=== PATIENT | male | born 1965 | race Caucasian/White ===

== ENCOUNTER → 2020-08-12 | Outpatient (CLI) | payer BC ==
--- NOTE | 2020-08-14 15:14 | US ---
EXAMINATION TYPE: US venous doppler duplex LE RT DATE OF EXAM: 08/12/2020 8:48 AM COMPARISON: NONE CLINICAL HISTORY: M79.89 Rt leg swelling. Right foot redness after injury from work equipment one mon ago. Recently, patient bent down to retrieve dog bowl and felt tear/pressure change right upper po sterior calf and now feels palpable here SIDE PERFORMED: Right TECHNIQUE: The lower extremity deep venous system is examined utilizing real time linear array sonog kayley with graded compression, doppler sonography and color-flow sonography. VESSELS IMAGED: Common Femoral Vein Deep Femoral Vein Greater Saphenous Vein * Femoral Vein Popliteal Vein Small Saphenous Vein * Proximal Calf Veins (* superficial vessels) There is normal flow, compressibility, vascular waveforms. Right Leg: Negative for DVT. At patient's c/o right posterior calf palpable are 2 fluid collections: at most superior posterior calf a simple fluid collection is seen = 6.5 x 4.0x 1.6cm and just inferio r is fluid collection that is complex = 6.6 x 4.8 x 3.0cm. Tech findings called to Nurse Practitioner for Ken Rider MD, at exam's end. JJ IMPRESSION: No evident deep venous stenosis at or above the right knee. 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
== END | disposition home or self-care (01) ==
LOC: RADUSWWP 06:53
PROVIDERS: ATTEND Family Medicine
DX: I73.9 Peripheral vascular disease, unspecified (principal); M79.89 Other specified soft tissue disorders

== ENCOUNTER → 2021-03-08 | Outpatient (CLI) | payer BC ==
--- NOTE | 2021-03-11 10:05 | MR ---
EXAMINATION TYPE: MR lumbar spine wo/w con DATE OF EXAM: 03/08/2021 COMPARISON: Prior lumbar MRI 10/07/2019 from outside institution HISTORY: Low back pain, numbness into legs. Unsteady on feet. TECHNIQUE: Multiplanar, multisequence images of the lumbar spine were acquired utilizing 10 mL intravenous Gadav ist gadolinium contrast. T12-L1: There is right posterior paracentral disc protrusion, endplate disc complex causing slight an terolateral mass effect on the thecal sac. No significant foraminal encroachment or spinal stenosis. There is facet arthropathy change. L1-L2: Posterior extension endplate disc complex results in some anterior mass effect on the thecal s ac, circumferential extension endplate disc complex causes left greater than right foraminal encroach ment. Left posterior paracentral disc bulge causes anterolateral mass effect on the thecal sac simila r to prior exam L2-L3: Posterior extension endplate disc complex causes mild anterior mass effect on the thecal sac. Circumferential extension endplate disc complex causes foraminal encroachment greater on the left bessy n on the right. Only mild spinal stenosis. L3-L4: Circumferential posterior disc bulge, endplate disc complex causes anterior mass effect on the thecal sac, mild spinal stenosis. There is facet arthropathy change contributing to encroachment on the lateral recesses. Circumferential extension of endplate disc complex encroaches on the left neura l foramen greater than right likely contributed by the scoliosis. The large disc herniation seen on p rior exam is not seen, likely due to interval surgery L4-L5: Spinal stenosis changes are again noted. Circumferential extension endplate disc complex contr ibuted with the listhesis causes bilateral foraminal encroachment. There is facet arthropathy with hy pertrophy of the ligamentum flavum. There is moderate to severe spinal stenosis, posterior disc herni ation causes anterolateral mass effect on the thecal sac in the left posterior left posterior paracen tral location, some peripheral enhancement is noted following contrast administration. There is some encroachment on the lateral recesses. L5-S1: Similar circumferential posterior and lateral extension endplate disc complex is noted, contac ting the anterior thecal sac and possibly proximal S1 nerve roots, lateral extension causes bilateral foraminal encroachment as on prior. There is some associated facet arthropathy change. No significan t spinal stenosis. Lumbar segments are intact. No paraspinal masses are identified. Conus medullaris has a normal appe arance. There is a spinal curvature, convex right centered near the lumbar spine. There is multilevel spondylosis. Loss of disc height is present at intervertebral levels, there is associated vacuum phe nomenon at the intervertebral levels, there is endplate discogenic marrow signal change. Retrolisthes is grade 1 L5-S1, anterolisthesis grade 1 at L4-5 is again seen. Lumbar vertebral bodies show preserv ed height. No additional abnormal enhancement following contrast administration. IMPRESSION: Degenerative disc disease, multilevel foraminal encroachment, spinal stenosis, scoliosis, facet arthr opathy as described, findings are similar to prior exam with interval discectomy suspected L3-4
== END | disposition home or self-care (01) ==
LOC: RADMRIMAIN 16:03
PROVIDERS: ATTEND Psychiatry & Neurology Neurology
DX: M48.061 Spinal stenosis, lumbar region without neurogenic claudication (principal); M51.36 Other intervertebral disc degeneration, lumbar region; M12.88 Other specific arthropathies, not elsewhere classified, other specified site
CPT/HCPCS: 72158; A9585

== ENCOUNTER 2021-03-11 15:13 | Observation (INO) | payer BC ==
[2021-03-11] MEDS ORDERED: methylPREDNISolone SOD SUCCI 125 MG/2 ML VIAL IV STA (16:16)
[2021-03-11] MEDS ORDERED: FAMOTIDINE 20 MG/2 ML VIAL IV STA (16:17)
[2021-03-11] MEDS ORDERED: diphenhydrAMINE 50 MG/ML 1 ML VIAL IVP STA (16:17)
[2021-03-11 17:01] LABS: Basophils % (A) 0 %; Eosinophils # (A) 0.1 k/uL (0-0.7); Eosinophils % (A) 1 %; HCT 47.5 % (39.0-53.0); HGB 16.3 gm/dL (13.0-17.5); Lymphocytes # (A) 0.6 k/uL (1.0-4.8); Lymphocytes % (A) 5 %; MCH 31.4 pg (25.0-35.0); MCHC 34.3 g/dL (31.0-37.0); MCV 91.6 fL (80.0-100.0); Mean Platelet Volume 7.7; Monocytes # (A) 0.2 k/uL (0-1.0); Monocytes % (A) 2 %; Neutrophils # (A) 11.5 k/uL (1.3-7.7); Neutrophils % (A) 92 %; Platelet Count 278 k/uL (150-450); RBC 5.18 m/uL (4.30-5.90); RDW 12.5 % (11.5-15.5); WBC 12.6 k/uL (3.8-10.6)
[2021-03-11 17:10] LABS: ALT 57 U/L (4-49); AST 33 U/L (17-59); African American GFR (CKD) >90 (>60 ml/min/1.73 sqM); Albumin 4.6 g/dL (3.5-5.0); Alkaline Phosphatase 83 U/L (38-126); Anion Gap 11 mmol/L; Blood Urea Nitrogen 20 mg/dL (9-20); Calcium 9.8 mg/dL (8.4-10.2); Carbon Dioxide 27 mmol/L (22-30); Chloride 97 mmol/L (98-107); Glucose 132 mg/dL (74-99); Magnesium 1.9 mg/dL (1.6-2.3); Non-African American GFR(CKD) >90 (>60 ml/min/1.73 sqM); Potassium 4.2 mmol/L (3.5-5.1); Sodium 135 mmol/L (137-145); Total Bilirubin 0.4 mg/dL (0.2-1.3); Total Protein 7.8 g/dL (6.3-8.2)
--- NOTE | 2021-03-11 17:50 | XR ---
EXAMINATION TYPE: XR chest 1V portable DATE OF EXAM: 03/11/2021 COMPARISON: NONE HISTORY: Neck swelling TECHNIQUE: Single view FINDINGS: There is no heart failure nor confluent pneumonic infiltrate. Costophrenic angles are clear . There are chest leads. IMPRESSION: No active cardiopulmonary disease.
--- NOTE | 2021-03-11 18:40 | CT ---
EXAMINATION TYPE: CT soft tissue neck w con DATE OF EXAM: 03/11/2021 COMPARISON: None HISTORY: Neck swelling post covid vaccine. CT DLP: 390.1 mGycm Automated exposure control for dose reduction was used. CONTRAST: Performed with IV Contrast, patient injected with 100ml mL of Isovue 300. Images obtained from the aortic arch to the orbits with IV contrast. The lung apices are clear. There is no mediastinal adenopathy. There is normal branching pattern of t he great vessels on the aortic arch. Thyroid gland is symmetric. There is normal contrast opacificati on of the carotid arteries and jugular veins. The submandibular salivary glands are symmetric. Paroti d glands are symmetric. There is enlarged right side submandibular lymph node that measures 3 cm. There is 1 cm left side sub mandibular lymph node. The mandible is intact. There are spondylotic changes in the lower cervical spine. Epiglottis is norm al. Trachea appears normal. There is no evidence of a pharyngeal mass. The tongue appears normal. The tonsils and adenoids are within normal limits. There is normal aeration of the maxillary sinuses. IMPRESSION: Moderately enlarged right side submandibular lymph node. No other significant abnormality.
[2021-03-11] MEDS ORDERED: CLINDAMYCIN 600 MG in DEXTROSE 5% IN WATER 50 ML IVPB STA ×2 (19:42)
[2021-03-11] MEDS ORDERED: traMADol 50 MG TAB PO PRN (22:49)
--- NOTE | 2021-03-11 23:02 | ED ---
General Adult HPI - General Chief complaint: Recheck/Abnormal Lab/Rx Stated complaint: vaccine reaction, facial swelling Time Seen by Provider: 03/11/21 15:30 Source: patient, family, RN notes reviewed, old records reviewed Mode of arrival: wheelchair Limitations: physical limitation - History of Present Illness Initial comments: Patient is a 55-year-old male with past medical history remarkable for hyperlipidemia, arthritis, chronic back pain who presents emergency department after being sent by his PCP for IV steroids and evaluation of his lymphedema. Patient states that last week he received a COVID-19 vaccine, and last week shortly after she experienced neck swelling and lymph nodes. He was in an outside hospital, and given IV steroids, and eventually discharged home on a steroid Dosepak. He states that the swelling improved, however today he notes that the right side of his neck was more swollen again. He became concerned and came to the emergency department for evaluation after speaking with his doctor. He denies any fevers, chills, chest pain, shortness of breath, abdominal pain, nausea, vomiting. He does endorse discomfort when swallowing, however is still able to eat and drink. He denies any difficulty breathing or feeling of his throat closing up. He presents for evaluation of his lymphedema. He states this has not occurred previously. - Related Data Home Medications Medication Instructions Recorded Confirmed Pregabalin [Lyrica] 75 mg PO BID 03/11/21 03/11/21 hydroCHLOROthiazide 50 mg PO BID 03/11/21 03/11/21 methylPREDNISolone Dose Pack See Taper PO DIRECTED 03/11/21 03/11/21 [Medrol Dose Pack] traMADol HCl [Ultram] 50 mg PO TID PRN 03/11/21 03/11/21 Allergies Allergy/AdvReac Type Severity Reaction Status Date / Time amoxicillin Allergy Rash/Hives Verified 03/11/21 17:46 latex AdvReac Rash/Hives Verified 03/11/21 17:46 Review of Systems ROS Statement: Those systems with pertinent positive or pertinent negative responses have been documented in the HPI. Review of Systems: CONST: Denies fever EYES: Denies blurry vision ENT: Endorses neck swelling C/V: Denies Chest pain RESP: Denies shortness of breath GI: Denies abdominal pain : Denies dysuria SKIN: Denies rash. MSK: Denies joint pain. NEURO: Denies headache ROS Other: All systems not noted in ROS Statement are negative. Past Medical History Past Medical History: Hyperlipidemia, Osteoarthritis (OA) Additional Past Medical History / Comment(s): ECHO SCHEDULED SUNDAY FOR EVAL. BACK PAIN, meinger's disease History of Any Multi-Drug Resistant Organisms: None Reported Past Surgical History: Back Surgery Additional Past Surgical History / Comment(s): L1-L2 RUPTURE HX 2003, Past Anesthesia/Blood Transfusion Reactions: No Reported Reaction Past Psychological History: No Psychological Hx Reported Smoking Status: Never smoker Past Alcohol Use History: None Reported Past Drug Use History: None Reported - Past Family History Father History Unknown: Yes Additional Family Medical History / Comment(s): cataract; glaucoma Mother History Unknown: Yes Family Medical History: No Reported History General Exam - General Exam Comments Initial Comments: General: Appears in no acute distress. HEAD: Normal with no signs of head trauma. EYES: PERRLA, EOMI, conjunctiva normal, no discharge. ENT: Patient has an approximately 3 cm palpable lymph node over the right submandibular region. There is a small palpable lymph node in the left submandibular region. Posterior oropharynx shows no uvular deviation or swelling. No stridor is auscultated on exam. Patient is tolerating his secretions well. RESPIRATORY: Clear breath sounds bilaterally. No wheezes, rales, or rhonchi. C/V: Regular rate and rhythm. S1 and S2 auscultated, no edema, peripheral pulses 2+ and intact throughout ABD: Abd is soft, nontender, nondistended EXT: Normal range of motion, no obvious deformity SKIN: No rashes or lesions observed on exposed skin. NEURO: Alert and oriented 4. Cranial nerves II through XII are intact. No focal deficits. Limitations: physical limitation Course Vital Signs 03/11/21 03/11/21 03/11/21 15:38 18:57 20:36 Temperature 98.4 F 98.0 F Pulse Rate 64 60 87 Pulse Rate [ Pulse Oximetery ] Respiratory 18 16 16 Rate Blood Pressure 141/87 129/76 128/76 Blood Pressure [Right Arm] O2 Sat by Pulse 96 95 99 Oximetry 03/11/21 21:09 Temperature 98.5 F Pulse Rate Pulse Rate [ 57 L Pulse Oximetery ] Respiratory 20 Rate Blood Pressure Blood Pressure 143/82 [Right Arm] O2 Sat by Pulse 94 L Oximetry Medical Decision Making - Medical Decision Making Based on the patient's presentation and physical exam, I do believe he is having what appears to be recurrence of his lymphedema. It has been ongoing since this morning but seems to stabilize per patient. His only complaint otherwise is mild discomfort when he swallows. He is tolerating by mouth intake and has no stridor or difficulty breathing. However we will obtain basic laboratory studies as well as a CT soft tissue of the neck. He is currently not in any pain. We will administered 125 mg of IV Solu-Medrol, 50 mg's of IV Benadryl, 40 mg of IV famotidine. Patient mentioned that he may have a heart condition or m urmur in there for screening EKG will also be obtained. He was in agreement with this plan. Patient's EKG showed sinus bradycardia with an incomplete right bundle branch block but no acute ischemic changes. Patient's laboratory studies are remarkable for a mild leukocytosis of 12.6. Patient is a mildly elevated ELT of 57. Remainder of his labs are unremarkable. CT soft tissue of the neck rev ealed a 3 cm enlarged lymph node in the right submandibular space and a 1 cm enlarged lymph node in the left submandibular space. There are no other significant abnormalities. On reevaluation, patient remains stable. I did discuss with him the results of his laboratory studies and imaging recommended that I speak with ENT over the phone. He was in agreement with this plan. I spoke with ENT over the phone and they recommended that patient receive IV antibiotics. Due to the patient's acute onset of swelling, I do believe that monitoring him for worsening of the swelling overnight is appropriate. ENT was in agreement with this plan. Patient was in agreement with this plan. Patient has an ampicillin ALLERGY and will therefore be started on IV clindamycin every 6hr 600 mg. Will also receive every 6 hour Solu-Medrol. ENT recommended outpatient antibiotic and follow-up with their clinic. They state they do not need to evaluate the patient in the hospital. I spoke with the admitting physician, Dr. Clayton, who was in agreement this plan. Patient was therefore admitted in fair condition. - Lab Data Result diagrams: 03/11/21 16:46 03/11/21 16:46 Lab Results 03/11/21 03/11/21 Range/Units 16:46 16:46 WBC 12.6 H (3.8-10.6) k/uL RBC 5.18 (4.30-5.90) m/uL Hgb 16.3 (13.0-17.5) gm/dL Hct 47.5 (39.0-53.0) % MCV 91.6 (80.0-100.0) fL MCH 31.4 (25.0-35.0) pg MCHC 34.3 (31.0-37.0) g/dL RDW 12.5 (11.5-15.5) % Plt Count 278 (150-450) k/uL MPV 7.7 Neutrophils % 92 % Lymphocytes % 5 % Monocytes % 2 % Eosinophils % 1 % Basophils % 0 % Neutrophils # 11.5 H (1.3-7.7) k/uL Lymphocytes # 0.6 L (1.0-4.8) k/uL Monocytes # 0.2 (0-1.0) k/uL Eosinophils # 0.1 (0-0.7) k/uL Basophils # 0.0 (0-0.2) k/uL Sodium 135 L (137-145) mmol/L Potassium 4.2 (3.5-5.1) mmol/L Chloride 97 L (98-107) mmol/L Carbon Dioxide 27 (22-30) mmol/L Anion Gap 11 mmol/L BUN 20 (9-20) mg/dL Creatinine 0.57 L (0.66-1.25) mg/dL Est GFR (CKD-EPI)AfAm >90 (>60 ml/min/1.73 sqM) Est GFR (CKD-EPI)NonAf >90 (>60 ml/min/1.73 sqM) Glucose 132 H (74-99) mg/dL Calcium 9.8 (8.4-10.2) mg/dL Magnesium 1.9 (1.6-2.3) mg/dL Total Bilirubin 0.4 (0.2-1.3) mg/dL AST 33 (17-59) U/L ALT 57 H (4-49) U/L Alkaline Phosphatase 83 (38-126) U/L Total Protein 7.8 (6.3-8.2) g/dL Albumin 4.6 (3.5-5.0) g/dL - EKG Data -: EKG Interpreted by Me EKG Comments: 12-lead Electrocardiogram Interpretation Note EKG was reviewed and interpreted by myself. 12-lead ECG performed at 1642 is interpreted by me as revealing sinus bradycardia with incomplete right branch b lock at a rate of 58 beats per minute. [place] is normal. MN interval is 150 ms, QRS durations 114 ms, QTc is 422 ms.. There were no ST or T wave abnormalities to suggest myocardial ischemia or injury. R wave progression across the precordium was satisfactory. By my interpretation this EKG is non-diagnostic for acute ischemia. Disposition Clinical Impression: Lymphadenopathy, Leukocytosis, Vaccine reaction Disposition: ADMITTED IP TO THIS HOSP Condition: Fair
[2021-03-11] MEDS: methylPREDNISolone SOD SUCCI 125 MG/2 ML VIAL IV SCH (23:07)
[2021-03-11] MEDS: PREGABALIN 75 MG CAP PO SCH (23:09)
[2021-03-12] MEDS: CLINDAMYCIN 600 MG in DEXTROSE 5% IN WATER 50 ML IVPB SCH ×4 (02:45→08:20)
[2021-03-12] MEDS: methylPREDNISolone SOD SUCCI 125 MG/2 ML VIAL IV SCH ×2 (06:21→11:32)
[2021-03-12] MEDS: PREGABALIN 75 MG CAP PO SCH ×2 (08:18→21:18)
--- NOTE | 2021-03-12 13:44 | P.HPIM ---
History of Present Illness H&P Date: 03/12/21 Chief Complaint: Right neck swelling History of presenting complaint: This is a pleasant 55-year-old patient of Dr. Rider. Chronic stable medical conditions include hyperlipidemia, osteoarthritis, Mnire's disease. Patient had COVID 19 infection in November of this year. Pain does ago patient received his first dose of more done on vaccination. On Sunday. Right neck started swelling. There was no pain. No fever no chills or trouble swallowing no wheezing. On Sunday when Dr. Tolbert [facility] May he did have a computed tomography scan to the blood work was all negative. From that he was sent down to [facility]. He was put on IV dexamethasone. Next morning he was seen by ENT. He did have a scope via the nose and was told it was all normal. He was sent home on steroids. He subsequently did follow up with [facility]. He was then told to come in to the ER here as yesterday started having some trouble swallowing. Swelling started coming back. No fever no chills. No wheezing. In the ER he was started on IV Solu-Medrol. This morning he was able to eat actually. No fever no chills. No pain. Denies any other systemic symptoms. Patient is also had previous lumbar surgery and is having flareup of his symptoms both in the neck and lumbar spine. He does follow with Dr. Aj from orthopedic [facility] and has had previous steroid injections. He also follows with neurology services Dr. Hayden in [facility]. He has noticed some numbness tingling in the right leg. And has taken time off from his work last week. Review of systems: GEN.: None EYES: None HEENT: As above NECK: None RESPIRATORY: None CARDIOVASCULAR: None GASTROINTESTINAL: None GENITOURINARY: None MUSCULOSKELETAL: [Low-back discomfort and some right leg numbness. The patient is able to walk. No change in bowel or urine symptoms LYMPHATICS: None HEMATOLOGICAL: None PSYCHIATRY: None NEUROLOGICAL: None Past medical history to include: Hyperlipidemia, osteoarthritis, COVID 19 infection, Mnire's disease, low back pain with L1-L2 surgery Social history: . No smoking. No alcohol. Employed. No recreational drugs Family history: Reviewed, noncontributory to presentation Physical examination: VITAL SIGNS: 97.7, 59, 20, 1 34 x 80, 94% on room air GENERAL: BMI 30.7, declining in bed, awake. EYES: Pupils equal. Conjunctiva normal. HEENT: External appearance of nose and ears normal, oral cavity grossly normal. NECK: [JVD not raised; right submandibular swelling smooth. Nontender. Nontender from the floor of the mouth.. HEART: First and second heart sounds are normal; no edema. LUNGS: Respiratory rate normal; clear to auscultation. ABDOMEN: Soft, nontender, liver spleen not palpable, no masses palpable. PSYCH: Alert and oriented x3; mood and affect normal. NEUROLOGICAL: Cranial nerves grossly intact; no facial asymmetry, power and sensation grossly intact. LYMPHATICS: No other lymph nodes palpable. None in the supraclavicular, axillary INVESTIGATIONS, reviewed in the clinical context: WBC 12.6 hemoglobin 16.3 platelets 278 neutrophils 11.5 lymphocytes 0.6 Sodium 135 potassium 4.2 creatinine 0.57 EKG tracing personally reviewed by me-normal sinus rhythm. Incomplete right bundle-branch block Computed tomography scan soft tissue neck with contrast: Enlarged right-sided submandibular lymph node about 3 cm. Assessment and plan: -Recurrent progressive, isolated right submandibular lymph node 3 cm. It does seem to respond to steroids and then recurrs. This did happen 5 days after getting his more done on vaccination short for COVID 19. What is interesting in that no other lymph nodes seem to be involved. Hence my concern that is another etiology. Patient does not have any systemic symptoms like fever or chills. He has no teeth or mouth symptoms. Patient did have dysphagia, which is better from steroids. Does not appear to be a bacterial infection and still DC antibiotics when washed the patient for 24 hours. Have the patient follow-up with ENT. -Acute on chronic low back pain and the patient was previously had L1-L2 surgery. MRI done yesterday shows DJD, multiple level for spinal stenosis: Patient will benefit from steroids. We'll also give a course of naproxen. GI prophylaxis. [facility] was discussed with the patient. IV Solu-Medrol. NSAIDs. Consult o rthopedics. Increase activity as tolerated. Lovenox for DVT prophylaxis. Follow-up with ENT Dr. Price outpatient. Patient will be observed overnight. Past Medical History Past Medical History: Hyperlipidemia, Osteoarthritis (OA) Additional Past Medical History / Comment(s): ECHO SCHEDULED SUNDAY FOR EVAL. BACK PAIN, meinger's disease History of Any Multi-Drug Resistant Organisms: None Reported Past Surgical History: Back Surgery Additional Past Surgical History / Comment(s): L1-L2 RUPTURE HX 2003, Past Anesthesia/Blood Transfusion Reactions: No Reported Reaction Past Psychological History: No Psychological Hx Reported Smoking Status: Never smoker Past Alcohol Use History: None Reported Past Drug Use History: None Reported - Past Family History Father History Unknown: Yes Additional Family Medical History / Comment(s): cataract; glaucoma Mother History Unknown: Yes Family Medical History: No Reported History Medications and Allergies Home Medications Medication Instructions Recorded Confirmed Type Pregabalin [Lyrica] 75 mg PO BID 03/11/21 03/11/21 History hydroCHLOROthiazide 50 mg PO BID 03/11/21 03/11/21 History methylPREDNISolone Dose Pack See Taper PO DIRECTED 03/11/21 03/11/21 History [Medrol Dose Pack] traMADol HCl [Ultram] 50 mg PO TID PRN 03/11/21 03/11/21 History Allergies Allergy/AdvReac Type Severity Reaction Status Date / Time amoxicillin Allergy Rash/Hives Verified 03/11/21 17:46 latex AdvReac Rash/Hives Verified 03/11/21 17:46 Physical Exam Vitals: Vital Signs Temp Pulse Pulse Resp BP BP BP 03/12/21 04:45 97.7 F 59 L 20 134/80 03/11/21 21:09 98.5 F 57 L 20 143/82 03/11/21 20:36 98.0 F 87 16 128/76 03/11/21 18:57 60 16 129/76 03/11/21 15:38 98.4 F 64 18 141/87 Pulse Ox 03/12/21 04:45 94 L 03/11/21 21:09 94 L 03/11/21 20:36 99 03/11/21 18:57 95 03/11/21 15:38 96 Intake and Output 03/11/21 03/12/21 03/12/21 22:59 06:59 14:59 Intake Total 0 Balance 0 Intake: Oral 0 Other: Voiding Method Toilet Urinal # Voids 1 Weight 97 kg Results CBC & Chem 7: 03/11/21 16:46 03/11/21 16:46 Labs: Abnormal Lab Results - Last 24 Hours (Table) 03/11/21 03/11/21 Range/Units 16:46 16:46 WBC 12.6 H (3.8-10.6) k/uL Neutrophils # 11.5 H (1.3-7.7) k/uL Lymphocytes # 0.6 L (1.0-4.8) k/uL Sodium 135 L (137-145) mmol/L Chloride 97 L (98-107) mmol/L Creatinine 0.57 L (0.66-1.25) mg/dL Glucose 132 H (74-99) mg/dL ALT 57 H (4-49) U/L Thrombosis Risk Factor Assmnt - Choose All That Apply Any of the Below Risk Factors Present?: Yes Each Factor Represents 1 point: Age 41-60 years, Obesity (BMI >25) Other Risk Factors: No Other congenital or acquired thrombophilia - If yes, enter type in comment: No Thrombosis Risk Factor Assessment Total Risk Factor Score: 2 Thrombosis Risk Factor Assessment Level: Low Risk
[2021-03-12] MEDS: NAPROXEN 250 MG TAB PO SCH ×2 (14:03→21:19)
[2021-03-12] MEDS: ENOXAPARIN 40 MG/0.4 ML SYRINGE SQ SCH (14:03)
[2021-03-12] MEDS: FAMOTIDINE 20 MG TAB PO SCH ×2 (14:04→21:18)
[2021-03-12] MEDS: methylPREDNISolone SOD SUCCI 40 MG/ML 1 ML VIAL IV SCH (21:18)
[2021-03-13] MEDS: ENOXAPARIN 40 MG/0.4 ML SYRINGE SQ SCH (07:59)
[2021-03-13] MEDS: PREGABALIN 75 MG CAP PO SCH (07:59)
[2021-03-13] MEDS: FAMOTIDINE 20 MG TAB PO SCH (07:59)
[2021-03-13] MEDS: NAPROXEN 250 MG TAB PO SCH ×2 (07:59→15:08)
[2021-03-13] MEDS: methylPREDNISolone SOD SUCCI 40 MG/ML 1 ML VIAL IV SCH (08:00)
--- NOTE | 2021-03-13 10:50 | P.CNOR ---
History of Present Illness - [facility] Consult date: 03/13/21 Consult reason: low back pain History of present illness: The patient is a 55-year-old male who presented to the emergency department with an enlarged lymph node in the right side of his neck. The patient was having difficulty breathing. The patient was placed on IV steroids and admitted for further observation. The patient was previously on oral steroids and was starting to taper off and noticed his swelling worsened. The patient has a history of chronic low back pain with a surgery in 2003. The patient has seen Dr. Morgan in the past and was recommended to get epidural injections with Dr. Frias. He had [address] Frias before the pandemic started in 2019. He was recently seen by his primary care physician and they sent a referral to [facility] for further evaluation of his lumbar spine. The patient states he does not know why the referral was sent there and not to our office. He was ordered an MRI outpatient that was completed on 03/11/2021. He states that [facility] wanted to compare his MRI to his previous MRI done at [facility]. He is awaiting further appointments at that office to schedule epidural injections. The patient states that his bilateral feet have been numb for approximately 4 weeks and the numbness in his right leg has continued to worsen as well. He is currently off of work due to weakness in his right leg especially. Orthopedics was consulted for further evaluation and care. The patient states that his neck pain has improved since IV steroids have been started but his low back is about the same. Review of Systems Constitutional: Denies chills, Denies fever Ears, nose, mouth and throat: Reports swelling in throat Cardiovascular: Denies chest pain, Denies shortness of breath Respiratory: Denies cough Gastrointestinal: Denies diarrhea, Denies nausea, Denies vomiting Musculoskeletal: Reports leg numbness/tingling, Reports low back pain Past Medical History Past Medical History: Hyperlipidemia, Osteoarthritis (OA) Additional Past Medical History / Comment(s): ECHO SCHEDULED SUNDAY FOR EVAL. BACK PAIN, meinger's disease History of Any Multi-Drug Resistant Organisms: None Reported Past Surgical History: Back Surgery Additional Past Surgical History / Comment(s): L1-L2 RUPTURE HX 2003, Past Anesthesia/Blood Transfusion Reactions: No Reported Reaction Past Psychological History: No Psychological Hx Reported Smoking Status: Never smoker Past Alcohol Use History: None Reported Past Drug Use History: None Reported - Past Family History Father History Unknown: Yes Additional Family Medical History / Comment(s): cataract; glaucoma Mother History Unknown: Yes Family Medical History: No Reported History Medications and Allergies Home Medications Medication Instructions Recorded Confirmed Type Pregabalin [Lyrica] 75 mg PO BID 03/11/21 03/11/21 History hydroCHLOROthiazide 50 mg PO BID 03/11/21 03/11/21 History methylPREDNISolone Dose Pack See Taper PO DIRECTED 03/11/21 03/11/21 History [Medrol Dose Pack] traMADol HCl [Ultram] 50 mg PO TID PRN 03/11/21 03/11/21 History Allergies Allergy/AdvReac Type Severity Reaction Status Date / Time amoxicillin Allergy Rash/Hives Verified 03/11/21 17:46 latex AdvReac Rash/Hives Verified 03/11/21 17:46 Physical Examination The patient is a 55 year-old male who is in no acute distress. He is alert and oriented 3. Abdomen is soft and nontender. Chest has good excursion with deep inspiration. There is mild paraspinal spasm on palpation to the lumbar spine bilaterally. He is able to sit on the side of bed without difficulty. He has sustained dorsiflexion and plantar flexion and EHL function 5/5 on the left side. There is weakness to the right side 3/5 EHL function, dorsiflexion, and plantar flexion. Bilateral calves are soft and nontender. Neurological and circulatory status is intact. Results - Labs Labs: H & H 03/11/21 Range/Units 16:46 Hgb 16.3 (13.0-17.5) gm/dL Hct 47.5 (39.0-53.0) % Result Diagrams: 03/11/21 16:46 03/11/21 16:46 - Diagnostic results Lumbar MRI with/without contrast: image reviewed (See report. No acute changes.) Assessment and Plan (1) Degenerative disc disease, lumbar Current Visit: Yes Status: Acute Code(s): M51.36 - OTHER INTERVERTEBRAL DISC DEGENERATION, LUMBAR REGION SNOMED Code(s): 71460650 (2) Lymphadenopathy Current Visit: Yes Status: Acute Code(s): R59.1 - GENERALIZED ENLARGED LYMPH NODES SNOMED Code(s): 03675308 Plan: The clinical and MRI findings were discussed with the patient. The case was discussed with Dr. Morgan. No surgical intervention is planned at this time. The patient may ambulate as tolerated. Continue pain control as needed. The patient states that he may be discharged today on oral steroids. He may follow up with Dr. Morgan in the office for further evaluation regarding options in regards to his lumbar spine.
[2021-03-13 14:25] VITALS: BP 160/85; PULSE 69; RESP 16; TEMP 98.1
--- NOTE | 2021-03-13 14:35 | P.DS ---
Providers Date of admission: 03/11/21 20:08 Expected date of discharge: 03/13/21 Attending physician: Jordan Clayton Consults: 03/12/21 11:54 Consult Physician Routine Consulting Provider: Heron Morgan Consult Reason/Comments: back pain/prior surgery Do you want consulting provider notified?: Yes Primary care physician: [facility] Course: Chief Complaint: Right neck swelling History of presenting complaint: This is a pleasant 55-year-old patient of Dr. Rider. Chronic stable medical conditions include hyperlipidemia, osteoarthritis, Mnire's disease. Patient had COVID 19 infection in November of this year. Pain does ago patient received his first dose of more done on vaccination. On Sunday. Right neck started swelling. There was no pain. No fever no chills or trouble swallowing no wheezing. On Sunday when Dr. Tolbert [facility] May he did have a computed tomography scan to the blood work was all negative. From that he was sent down to [facility]. He was put on IV dexamethasone. Next morning he was seen by ENT. He did have a scope via the nose and was told it was all normal. He was sent home on steroids. He subsequently did follow up with [facility]. He was then told to come in to the ER here as yesterday started having some trouble swallowing. Swelling started coming back. No fever no chills. No wheezing. In the ER he was started on IV Solu-Medrol. This morning he was able to eat actually. No fever no chills. No pain. Denies any other systemic symptoms. Patient is also had previous lumbar surgery and is having flareup of his symptoms both in the neck and lumbar spine. He does follow with Dr. Aj [facility] and has had previous steroid injections. He also follows with neurology services Dr. Hayden in [facility]. He has noticed some numbness tingling in the right leg. And has taken time off from his work last week. Patient is put on high-dose steroids. March 13: Patient is seen by orthopedics Dr. Edward's team. They'll follow up as an outpatient. Patient's left foot is gone down. No fever no pain. Tolerating diet well. Patient will follow-up with ENT Dr. Dayo Price. Care was discussed. Questions answered. Tapering dose of steroids. Consultation: , from [facility] Past medical history to include: Hyperlipidemia, osteoarthritis, COVID 19 infection, Mnire's disease, low back pain with L1-L2 surgery Social history: . No smoking. No alcohol. Employed. No recreational drugs Family history: Reviewed, noncontributory to presentation Physical examination: VITAL : 98.1, 69, 16, 160/85, 95% room air GENERALReclining in bed, comfortableES: Pupils equal. Conjunctiva normal. HEENT: External appearance of nose and ears normal, oral cavity grossly normal. NECK: [JVD not raised; right submandibular swelling smooth-Reduced in size. Nontender. Nontender from the floor of the mouth.. HEART: First and second heart sounds are normal; no edema. LUNGS: Respiratory rate normal; clear to auscultation. ABDOMEN: Soft, nontender, liver spleen not palpable, no masses palpable. PSYCH: Alert and oriented x3; mood and affect normal. NEUROLOGICAL: Cranial nerves grossly intact; no facial asymmetry, power and sensation grossly intact. LYMPHATICS: No other lymph nodes palpable. None in the supraclavicular, axillary INVESTIGATIONS, reviewed in the clinical context: WBC 12.6 hemoglobin 16.3 platelets 278 neutrophils 11.5 lymphocytes 0.6 Sodium 135 potassium 4.2 creatinine 0.57 EKG tracing personally reviewed by me-normal sinus rhythm. Incomplete right bundle-branch block Computed tomography scan soft tissue neck with contrast: Enlarged right-sided submandibular lymph node about 3 cm. Assessment and plan: -Recurrent progressive, isolated right submandibular lymph node 3 cm. It does seem to respond to steroids and then recurrs. This did happen 5 days after getting his more done on vaccination short for COVID 19. What is interesting in that no other lymph nodes seem to be involved. Hence my concern that is another etiology. Patient does not have any systemic symptoms like fever or chills. He has no teeth or mouth symptoms.: Reactive large lymphadenopathy Patient is wondering well to steroids. Discharged on tapering dose of steroids. Follow-up with ENT. -Acute dysphagia from lymphadenopathy: Improved -Acute on chronic low back pain and the patient was previously had L1-L2 surgery. MRI done yesterday shows DJD, multiple level for spinal stenosis: Discharge on tapering dose of steroids, naproxen. [facility] in the office. Disposition: Home Patient Condition at Discharge: Fair Plan - Discharge Summary Discharge Rx Participant: No New Discharge Prescriptions: New Famotidine [Pepcid] 20 mg PO BID #30 tab predniSONE 10 mg PO DAILY #30 tab Naproxen [Naprosyn] 250 mg PO TID #15 tab Continue traMADol HCl [Ultram] 50 mg PO TID PRN PRN Reason: Pain hydroCHLOROthiazide 50 mg PO BID Pregabalin [Lyrica] 75 mg PO BID Discontinued methylPREDNISolone Dose Pack [Medrol Dose Pack] See Taper PO DIRECTED Discharge Medication List Pregabalin [Lyrica] 75 mg PO BID 03/11/21 [History] hydroCHLOROthiazide 50 mg PO BID 03/11/21 [History] traMADol HCl [Ultram] 50 mg PO TID PRN 03/11/21 [History] Famotidine [Pepcid] 20 mg PO BID #30 tab 03/13/21 [Rx] Naproxen [Naprosyn] 250 mg PO TID #15 tab 03/13/21 [Rx] predniSONE 10 mg PO DAILY #30 tab 03/13/21 [Rx] Follow up Appointment(s)/Referral(s): Heron Morgan DO [Doctor of Osteopathic Medicine] - 1 Week Ken Rider MD [Primary Care Provider] - 1 Week Dayo Price MD [STAFF PHYSICIAN] - 1 Week
== END 2021-03-13 16:31 | disposition home or self-care (01) ==
LOC: EC 15:13 → 5NMEDONC 20:08
PROVIDERS: ADMIT Hospitalist; ATTEND Hospitalist
DX: T88.1XXA Other complications following immunization, not elsewhere classified, initial encounter (principal); I89.0 Lymphedema, not elsewhere classified; G89.29 Other chronic pain; M54.5 Low back pain; M19.90 Unspecified osteoarthritis, unspecified site; M51.36 Other intervertebral disc degeneration, lumbar region; M48.00 Spinal stenosis, site unspecified; E78.5 Hyperlipidemia, unspecified; R00.1 Bradycardia, unspecified; R20.2 Paresthesia of skin; R20.0 Anesthesia of skin; R53.1 Weakness; I45.10 Unspecified right bundle-branch block; H81.09 Meniere's disease, unspecified ear; Z79.899 Other long term (current) drug therapy; Z88.0 Allergy status to penicillin; Z91.040 Latex allergy status; Z86.16 Personal history of COVID-19; Z83.511 Family history of glaucoma; Z83.518 Family history of other specified eye disorder
CPT/HCPCS: 99285; 96376 ×3; 96365; 96366; 96372 ×2; 96375; 36415; 93005; 80053; 83735; 85025; 71045; 70491; G0378 ×3; J1200; J2920 ×2; J2930 ×2; J1650 ×2; Q9967

== ENCOUNTER → 2021-03-16 | Outpatient (CLI) | payer BC ==
--- NOTE | 2021-03-17 05:45 | MR ---
EXAMINATION TYPE: MR cervical spine wo con DATE OF EXAM: 03/16/2021 COMPARISON: None HISTORY: Numbness in left arm and tingling of finger tips right hand for 3 months. Multiplanar multiecho imaging of the cervical spine without contrast. There is minimal straightening of the mid cervical spine. There is degenerative disc space narrowing at C5-6 and C6-7. Cervical spinal cord shows no edema. There is small posterior disc bulging and gina iation from C4 to C7. The canal measures 8.5 mm at C6-7 which is the narrowest point. There is no spi nal stenosis. The brainstem is intact. I see no focal bone destruction. There is a sharply marginated rounded 7 mm cyst in the C6 vertebral body consistent with a degenerative cyst. There is no cervical paraspinal mass. Posterior elements are intact. IMPRESSION: Multilevel spondylotic changes with small posterior disc bulging and herniation as above. No evidence of any significant spinal stenosis.
== END | disposition home or self-care (01) ==
LOC: RADMRIMAIN 18:07
PROVIDERS: ATTEND Psychiatry & Neurology Neurology
DX: M50.322 Other cervical disc degeneration at C5-C6 level (principal); M47.812 Spondylosis without myelopathy or radiculopathy, cervical region
CPT/HCPCS: 72141

== ENCOUNTER 2021-04-08 17:41 | Emergency (ER) | payer BC ==
[2021-04-08 18:07] VITALS: RESP 20; TEMP 98.6
--- NOTE | 2021-04-08 18:47 | ED ---
General Adult HPI - General Chief complaint: Extremity Problem,Nontraumatic Stated complaint: Right leg swelling Time Seen by Provider: 04/08/21 18:32 Source: patient, family, RN notes reviewed Mode of arrival: ambulatory Limitations: no limitations - History of Present Illness Initial comments: Patient is a pleasant 56-year-old male presenting to the emergency department with concerns of right leg swelling. Symptoms started a couple of weeks ago. Symptoms worsened the last 5 days or so. Patient only has minimal discomfort secondary to the skin and feeling tight. Patient denies any chest pain or shortness of breath. Patient did have epidural injection secondary to back problems around 1 week ago. Swelling did start prior to this. No new leg weakness. No fevers. No color change. - Related Data Home Medications Medication Instructions Recorded Confirmed Pregabalin [Lyrica] 75 mg PO BID 03/11/21 03/11/21 hydroCHLOROthiazide 50 mg PO BID 03/11/21 03/11/21 traMADol HCl [Ultram] 50 mg PO TID PRN 03/11/21 03/11/21 Previous Rx's Medication Instructions Recorded Famotidine [Pepcid] 20 mg PO BID #30 tab 03/13/21 Naproxen [Naprosyn] 250 mg PO TID #15 tab 03/13/21 predniSONE 10 mg PO DAILY #30 tab 03/13/21 Allergies Allergy/AdvReac Type Severity Reaction Status Date / Time amoxicillin Allergy Rash/Hives Verified 03/11/21 17:46 COVID-19 vaccine, mRNA, Allergy Swelling Verified 04/08/21 18:08 [id number], L latex AdvReac Rash/Hives Verified 03/11/21 17:46 Review of Systems ROS Statement: Those systems with pertinent positive or pertinent negative responses have been documented in the HPI. ROS Other: All systems not noted in ROS Statement are negative. Constitutional: Denies: fever Eyes: Denies: eye pain ENT: Denies: ear pain Respiratory: Denies: cough Cardiovascular: Denies: chest pain Endocrine: Denies: fatigue Gastrointestinal: Denies: abdominal pain Genitourinary: Denies: dysuria Musculoskeletal: Denies: back pain Skin: Denies: rash Neurological: Denies: weakness Past Medical History Past Medical History: Hyperlipidemia, Osteoarthritis (OA) Additional Past Medical History / Comment(s): ECHO SCHEDULED SUNDAY FOR EVAL. BACK PAIN, meinger's disease History of Any Multi-Drug Resistant Organisms: None Reported Past Surgical History: Back Surgery Additional Past Surgical History / Comment(s): L1-L2 RUPTURE HX 2004, Past Anesthesia/Blood Transfusion Reactions: No Reported Reaction Past Psychological History: No Psychological Hx Reported Smoking Status: Never smoker Past Alcohol Use History: None Reported Past Drug Use History: None Reported - Past Family History Father History Unknown: Yes Additional Family Medical History / Comment(s): cataract; glaucoma Mother History Unknown: Yes Family Medical History: No Reported History General Exam Limitations: no limitations General appearance: alert, in no apparent distress Head exam: Present: normocephalic Eye exam: Present: normal appearance Respiratory exam: Present: normal lung sounds bilaterally Cardiovascular Exam: Present: regular rate, normal rhythm Expanded Peripheral pulses: 2+: Posterior Tibialis (R), Dorsalis Pedis (R) GI/Abdominal exam: Present: soft. Absent: tenderness Extremities exam: Present: pedal edema (Right lower leg and ankle), other (No warmth or color change). Absent: calf tenderness Back exam: Present: normal inspection. Absent: tenderness Neurological exam: Present: alert. Absent: motor sensory deficit Psychiatric exam: Present: normal affect, normal mood Skin exam: Present: normal color. Absent: erythema Course Vital Signs 04/08/21 18:03 Temperature 98.6 F Pulse Rate 69 Respiratory 20 Rate Blood Pressure 159/84 O2 Sat by Pulse 99 Oximetry Medical Decision Making - Medical Decision Making Patient reevaluated. Patient and family updated. - Radiology Data Radiology results: report reviewed (Ultrasound negative for DVT. Popliteal cyst is present.), image reviewed (Right tib-fib shows no acute process, severe right knee arthritis) Disposition Clinical Impression: Popliteal cyst Disposition: HOME SELF-CARE Condition: Stable Instructions (If sedation given, give patient instructions): Bakers Cyst (ED) Additional Instructions: Please follow-up with your orthopedic doctor and primary care physician in the being the week. Return for chest pain or difficulty breathing, increased swelling, redness or fever, worsening symptoms or other concerns. Is patient prescribed a controlled substance at d/c from ED?: No Referrals: Ken Rider MD [Primary Care Provider] - 1-2 days Time of Disposition: 20:24
--- NOTE | 2021-04-08 19:21 | XR ---
EXAMINATION TYPE: XR tibia fibula RT DATE OF EXAM: 04/08/2021 COMPARISON: NONE HISTORY: Leg pain and swelling TECHNIQUE: 4 views FINDINGS: There is narrowing of the joint spaces. There is moderate spurring of the femoral and tibia l condyles. There is slight depression of the medial tibial plateau. This appears chronic. The ankle joint is intact. There is soft tissue swelling around the ankle joint. IMPRESSION: Moderately severe osteoarthritis in the knee joint. No fracture. Knee joint not optimally evaluated.
--- NOTE | 2021-04-08 20:08 | US ---
EXAMINATION TYPE: US venous doppler duplex LE RT DATE OF EXAM: 04/08/2021 7:39 PM COMPARISON: 08/12/2020 CLINICAL HISTORY: swelling. Swelling that goes down at night but comes back during the day. Not on b lood thinners. No hx blood clot. No redness. SIDE PERFORMED: Right TECHNIQUE: The lower extremity deep venous system is examined utilizing real time linear array sonog kayley with graded compression, doppler sonography and color-flow sonography. VESSELS IMAGED: Common Femoral Vein Deep Femoral Vein Greater Saphenous Vein * Femoral Vein Popliteal Vein Small Saphenous Vein * Proximal Calf Veins (* superficial vessels) Right Leg: Negative for DVT. Fluid collection posterior knee= 3.2 x 0.9 cm IMPRESSION: No evidence of deep vein thrombosis in the right leg. There is popliteal cyst. There is c learing of a complex fluid collection at the upper calf compared to old exam.
[2021-04-08 21:34] VITALS: BP 145/87; PULSE 80
== END 2021-04-08 21:34 | disposition home or self-care (01) ==
LOC: EC 17:41
DX: M71.21 Synovial cyst of popliteal space [Baker], right knee (principal); E78.5 Hyperlipidemia, unspecified; M19.90 Unspecified osteoarthritis, unspecified site; Z79.1 Long term (current) use of non-steroidal anti-inflammatories (NSAID); Z79.52 Long term (current) use of systemic steroids
CPT/HCPCS: 99284

== ENCOUNTER 2022-07-02 21:15 | Emergency (ER) | payer BC ==
[2022-07-02 21:48] VITALS: BP 171/96; PULSE 94; RESP 16; TEMP 98.6
--- NOTE | 2022-07-02 22:29 | ED ---
General Adult HPI - General Chief complaint: Skin/Abscess/Foreign Body Stated complaint: Shingles Time Seen by Provider: 07/02/22 22:20 Source: patient, RN notes reviewed, old records reviewed Mode of arrival: ambulatory Limitations: no limitations - History of Present Illness Initial comments: 57-year-old male presenting with rash around his waist for the past several days. Patient first noticed the rash well 4 days ago and has been progressively irritated and erythematous as well as itchy. Mildly painful. He states states he got a new belt about one week ago. This is he'll be change. - Related Data Home Medications Medication Instructions Recorded Confirmed Pregabalin [Lyrica] 75 mg PO BID 03/11/21 03/11/21 hydroCHLOROthiazide 50 mg PO BID 03/11/21 03/11/21 traMADol HCl [Ultram] 50 mg PO TID PRN 03/11/21 03/11/21 Previous Rx's Medication Instructions Recorded Famotidine [Pepcid] 20 mg PO BID #30 tab 03/13/21 Naproxen [Naprosyn] 250 mg PO TID #15 tab 03/13/21 predniSONE 10 mg PO DAILY #30 tab 03/13/21 Hydrocortisone Cream 1 applic TOPICAL TID #28 gm 07/02/22 [Hydrocortisone 2.5% Cream] Allergies Allergy/AdvReac Type Severity Reaction Status Date / Time amoxicillin Allergy Rash/Hives Verified 07/02/22 21:44 COVID-19 vaccine, mRNA, Allergy Swelling Verified 07/02/22 21:44 [id number], L latex AdvReac Rash/Hives Verified 07/02/22 21:44 Review of Systems ROS Statement: Those systems with pertinent positive or pertinent negative responses have been documented in the HPI. ROS Other: All systems not noted in ROS Statement are negative. Past Medical History Past Medical History: Hyperlipidemia, Osteoarthritis (OA) Additional Past Medical History / Comment(s): ECHO SCHEDULED SUNDAY FOR EVAL. BACK PAIN, meinger's disease History of Any Multi-Drug Resistant Organisms: None Reported Past Surgical History: Back Surgery Additional Past Surgical History / Comment(s): L1-L2 RUPTURE HX 2003, Past Anesthesia/Blood Transfusion Reactions: No Reported Reaction Past Psychological History: No Psychological Hx Reported Smoking Status: Never smoker Past Alcohol Use History: None Reported Past Drug Use History: None Reported - Past Family History Father History Unknown: Yes Additional Family Medical History / Comment(s): cataract; glaucoma Mother History Unknown: Yes Family Medical History: No Reported History General Exam Limitations: no limitations General appearance: alert, in no apparent distress Head exam: Present: atraumatic, normocephalic Eye exam: Present: normal appearance, PERRL ENT exam: Present: normal exam Neck exam: Present: normal inspection. Absent: tenderness, meningismus Respiratory exam: Present: normal lung sounds bilaterally. Absent: respiratory distress, wheezes Cardiovascular Exam: Present: regular rate, normal rhythm Extremities exam: Present: normal inspection Neurological exam: Present: alert, oriented X3 Skin exam: Present: intact, erythema (Erythematous slightly raised rash in a circumferential pattern at the belt line) Course Vital Signs 07/02/22 21:45 Temperature 98.6 F Pulse Rate 94 Respiratory 16 Rate Blood Pressure 171/96 O2 Sat by Pulse 98 Oximetry Medical Decision Making - Medical Decision Making 57-year-old male with a erythematous itchy rash in a pattern consistent with contact dermatitis from he knew belt that the patient has been wearing for about one week. The time course corresponds to the symptom onset. Prescribed topical steroids he will discontinue the belt. Disposition Clinical Impression: Contact dermatitis Disposition: HOME SELF-CARE Condition: Good Instructions (If sedation given, give patient instructions): Contact Dermatitis (ED) Prescriptions: Hydrocortisone Cream [Hydrocortisone 2.5% Cream] 1 applic TOPICAL TID #28 gm Is patient prescribed a controlled substance at d/c from ED?: No Referrals: Ken Rider MD [Primary Care Provider] - 1-2 days Time of Disposition: 22:28
== END 2022-07-02 22:53 | disposition home or self-care (01) ==
LOC: EC 21:15
DX: L25.9 Unspecified contact dermatitis, unspecified cause (principal); M19.90 Unspecified osteoarthritis, unspecified site; E78.5 Hyperlipidemia, unspecified; Z88.0 Allergy status to penicillin; Z88.1 Allergy status to other antibiotic agents; Z91.040 Latex allergy status; Z79.899 Other long term (current) drug therapy
CPT/HCPCS: 99282

== ENCOUNTER 2023-03-30 11:58 | Emergency (ER) | payer BC ==
[2023-03-30 12:08] VITALS: RESP 20; TEMP 98.3
[2023-03-30] MEDS ORDERED: METOCLOPRAMIDE 5 MG/ML 2 ML VIAL IVP STA (13:44)
--- NOTE | 2023-03-30 13:52 | ED ---
General Adult HPI - General Chief complaint: Dizziness Stated complaint: Vertigo Time Seen by Provider: 03/30/23 12:59 Source: patient Mode of arrival: ambulatory Limitations: no limitations - History of Present Illness Initial comments: Dictation was produced using [employer] dictation software. please excuse any grammatical, word or spelling errors. Chief Complaint: 57 yo male past medical history of Mnire's disease presents to the ER for vertigo History of Present Illness: This 57-year-old male who has past medical history of Mnire's disease. Patient was diagnosed with Mnire's disease 15 years ago when he started to have several vertigo attacks. He was living in [place] at a time. 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 Patient does not take any antivertigo medication she was at the urgent care 2 days ago where he was reevaluated by urgent career technical supervisor. He was prescribed Antivert. States that his symptoms did not significantly improve and was instructed to come to the ER if still having symptoms in 3 days. He was told that his symptoms may represent a stroke. Patient states that his vertigo is worse when he goes quickly from laying to standing. He is able to walk however need some assistance due to feeling so vertiginous. Hasn't had any vomiting. Denies any pain complaints. The ROS documented in this emergency department record has been reviewed and confirmed by me. Those systems with pertinent positive or negative responses have been documented in the HPI. All other systems are other negative and/or noncontributory. - Related Data Home Medications Medication Instructions Recorded Confirmed Pregabalin [Lyrica] 75 mg PO BID 03/11/21 03/11/21 hydroCHLOROthiazide 50 mg PO BID 03/11/21 03/11/21 traMADol HCl [Ultram] 50 mg PO TID PRN 03/11/21 03/11/21 Previous Rx's Medication Instructions Recorded Famotidine [Pepcid] 20 mg PO BID #30 tab 03/13/21 Naproxen [Naprosyn] 250 mg PO TID #15 tab 03/13/21 predniSONE 10 mg PO DAILY #30 tab 03/13/21 Hydrocortisone Cream 1 applic TOPICAL TID #28 gm 07/02/22 [Hydrocortisone 2.5% Cream] Metoclopramide [Reglan] 10 mg PO TID PRN #12 tab 03/30/23 Allergies Allergy/AdvReac Type Severity Reaction Status Date / Time amoxicillin Allergy Rash/Hives Verified 03/30/23 12:08 COVID-19 vaccine, mRNA, Allergy Swelling Verified 03/30/23 12:08 [id number], L latex AdvReac Rash/Hives Verified 03/30/23 12:08 Review of Systems ROS Statement: Those systems with pertinent positive or pertinent negative responses have been documented in the HPI. ROS Other: All systems not noted in ROS Statement are negative. Past Medical History Past Medical History: Hyperlipidemia, Osteoarthritis (OA) Additional Past Medical History / Comment(s): ECHO SCHEDULED SUNDAY FOR EVAL. BACK PAIN, meinger's disease History of Any Multi-Drug Resistant Organisms: None Reported Past Surgical History: Back Surgery Additional Past Surgical History / Comment(s): L1-L2 RUPTURE HX 2003, Past Anesthesia/Blood Transfusion Reactions: No Reported Reaction Past Psychological History: No Psychological Hx Reported Smoking Status: Never smoker Past Alcohol Use History: None Reported Past Drug Use History: None Reported - Past Family History Father History Unknown: Yes Additional Family Medical History / Comment(s): cataract; glaucoma Mother History Unknown: Yes Family Medical History: No Reported History General Exam - General Exam Comments Initial Comments: PHYSICAL EXAM: General Impression: Alert and oriented x3, not in acute distress HEENT: Normocephalic atraumatic, extra-ocular movements intact, pupils equal and reactive to light bilaterally, mucous membranes moist. Cardiovascular: Heart regular rate and rhythm Chest: Able to complete full sentences, no retractions, no tachypnea Abdomen: abdomen soft, non-tender, non-distended, no organomegaly Musculoskeletal: Pulses present and equal in all extremities, no peripheral edema Motor: no focal deficits noted Neurological: CN II-XII grossly intact, no focal motor or sensory deficits noted, right beating nystagmus with fast phase to the right, no direction changing nystagmus, no vertical or rotatory nystagmus. Skin: Intact with no visualized rashes Psych: Normal affect and mood Limitations: no limitations Course Vital Signs 03/30/23 03/30/23 12:05 14:49 Temperature 98.3 F Pulse Rate 62 Pulse Rate [ 59 L Sitting Pulse Oximetery] Pulse Rate [ 59 L Standing Steel Spar Operator ] Pulse Rate [ 54 L Supine Steel Spar Operator] Respiratory 20 20 Rate Blood Pressure 153/95 Blood Pressure 150/88 [Right Arm Sitting] Blood Pressure 147/88 [Right Arm Standing] Blood Pressure 133/88 [Right Arm Supine] O2 Sat by Pulse 99 Oximetry Medical Decision Making - Medical Decision Making Was pt. sent in by a medical professional or institution (, [facility], [facility], urgent care, hospital, or senior living...) When possible be specific @ -No Did you speak to anyone other than the patient for history (EMS, parent, family, police, friend...)? What history was obtained from this source @ -No Did you review nursing and triage notes (agree or disagree)? Why? @ -I reviewed and agree with nursing and triage notes Were old charts reviewed (outside hosp., previous admission, EMS record, old EKG, old radiological studies, urgent care reports/EKG's, senior living records)? Report findings @ -No old charts were reviewed Differential Diagnosis (chest pain, altered mental status, abdominal pain women, abdominal pain men, vaginal bleeding, musculoskeletal, weakness, fever, dyspnea, syncope, headache, dizziness, GI bleed, back pain, seizure, CVA, palpatations, mental health)? @ -Differential Dizziness: Benign paroxysmal positional Vertigo, Menieres disease, otitis media, acoustic neuroma, vertebrobasilar insufficiency, cerebellar stroke, encephalitis, hypovolemic, arrhythmia, coronary artery syndrome, anemia, this is not meant to be an all-inclusive list EKG interpreted by me (3pts min.). @ -See above X-rays interpreted by me (1pt min.). @ -None done CT interpreted by me (1pt min.). @ -no acute intracranial processes on CT of the brain U/S interpreted by me (1pt. min.). @ -None done What testing was considered but not performed or refused? (CT, X-rays, U/S, labs)? Why? @ -None What meds were considered but not given or refused? Why? @ -None Did you discuss the management of the patient with other professionals (professionals i.e. , [facility], [facility], lab, RT, psych nurse, high school social studies teacher, intranet specialist, teacher, postal delivery officer, manager of case management)? Give summary @ -No Was smoking cessation discussed for >3mins.? @ -No Was critical care preformed (if so, how long)? @ -No Were there social determinants of health that impacted care today? How? (Homelessness, low income, unemployed, alcoholism, drug addiction, transportation, low edu. Level, literacy, decrease access to med. care, snf, rehab)? @ -No Was there de-escalation of care discussed even if they declined (Discuss DNR or withdrawal of care, Hospice)? DNR status @ -No What co-morbidities impacted this encounter? (DM, HTN, Smoking, COPD, CAD, Cancer, CVA, ARF, Chemo, Hep., AIDS, mental health diagnosis, sleep apnea, morbid obesity)? @ -None Was patient admitted / discharged? Hospital course, mention meds given and route, prescriptions, significant lab abnormalities, going to OR and other pertinent info. @ -57-year-old male past medical history Mnire's disease presents to the ER for vertigo. Patient's symptoms are strongly insistent with benign paroxysmal vertigo. Vital signs stable. Neurologic exam is unremarkable. Labs and CT imaging unremarkable. Patient given Reglan. Reevaluated states that his symptoms are significantly improved. Patient discharged told to follow-up with primary care doctor. He is given prescription for Reglan for symptom relief. He is given outpatient information for ENT specialist. Undiagnosed new problem with uncertain prognosis? @ -No Drug Therapy requiring intensive monitoring for toxicity (Heparin, Nitro, Insulin, Cardizem)? @ -No Were any procedures done? @ -No Diagnosis/symptom? Acute, or Chronic, or Acute on Chronic? Uncomplicated (without systemic symptoms) or Complicated (systemic symptoms)? @ -1. Vertigo Side effects of treatment? @ -No Exacerbation, Progression, or Severe Exacerbation? @ -No Poses a threat to life or bodily function? How? (Chest pain, [place], [place], pneumonia, PE, COPD, DKA, ARF, appy, cholecystitis, CVA, Diverticulitis, Homicidal, Suicida l, threat to staff... and all critical care pts) @ -No - Lab Data Result diagrams: 03/30/23 13:46 03/30/23 13:46 Lab Results 03/30/23 03/30/23 Range/Units 13:46 13:46 WBC 7.3 (3.8-10.6) k/uL RBC 5.12 (4.30-5.90) m/uL Hgb 16.0 (13.0-17.5) gm/dL Hct 45.8 (39.0-53.0) % MCV 89.5 (80.0-100.0) fL MCH 31.3 (25.0-35.0) pg MCHC 34.9 (31.0-37.0) g/dL RDW 13.4 (11.5-15.5) % Plt Count 180 (150-450) k/uL MPV 7.7 Neutrophils % 61 % Lymphocytes % 28 % Monocytes % 5 % Eosinophils % 3 % Basophils % 0 % Neutrophils # 4.4 (1.3-7.7) k/uL Lymphocytes # 2.0 (1.0-4.8) k/uL Monocytes # 0.4 (0-1.0) k/uL Eosinophils # 0.3 (0-0.7) k/uL Basophils # 0.0 (0-0.2) k/uL Sodium 135 L (137-145) mmol/L Potassium 3.6 (3.5-5.1) mmol/L Chloride 101 (98-107) mmol/L Carbon Dioxide 22 (22-30) mmol/L Anion Gap 12 mmol/L BUN 23 H (9-20) mg/dL Creatinine 0.64 L (0.66-1.25) mg/dL Est GFR (CKD-EPI)AfAm >90 (>60 ml/min/1.73 sqM) Est GFR (CKD-EPI)NonAf >90 (>60 ml/min/1.73 sqM) Glucose 96 (74-99) mg/dL Calcium 9.4 (8.4-10.2) mg/dL Disposition Clinical Impression: Vertigo Disposition: HOME SELF-CARE Condition: Good Instructions (If sedation given, give patient instructions): Dizziness (ED) Prescriptions: Metoclopramide [Reglan] 10 mg PO TID PRN #12 tab PRN Reason: Vertigo Is patient prescribed a controlled substance at d/c from ED?: No Referrals: Ken Rider MD [Primary Care Provider] - 1-2 days Joseph Wood DO [Doctor of Osteopathic Medicine] - 1-2 days Time of Disposition: 15:27
[2023-03-30 13:57] LABS: Basophils % (A) 0 %; Eosinophils # (A) 0.3 k/uL (0-0.7); Eosinophils % (A) 3 %; HCT 45.8 % (39.0-53.0); Lymphocytes % (A) 28 %; MCH 31.3 pg (25.0-35.0); MCHC 34.9 g/dL (31.0-37.0); MCV 89.5 fL (80.0-100.0); Mean Platelet Volume 7.7; Monocytes # (A) 0.4 k/uL (0-1.0); Monocytes % (A) 5 %; Neutrophils # (A) 4.4 k/uL (1.3-7.7); Neutrophils % (A) 61 %; Platelet Count 180 k/uL (150-450); RBC 5.12 m/uL (4.30-5.90); RDW 13.4 % (11.5-15.5); WBC 7.3 k/uL (3.8-10.6)
[2023-03-30 14:13] LABS: African American GFR (CKD) >90 (>60 ml/min/1.73 sqM); Anion Gap 12 mmol/L; Blood Urea Nitrogen 23 mg/dL (9-20); Calcium 9.4 mg/dL (8.4-10.2); Carbon Dioxide 22 mmol/L (22-30); Chloride 101 mmol/L (98-107); Glucose 96 mg/dL (74-99); Non-African American GFR(CKD) >90 (>60 ml/min/1.73 sqM); Sodium 135 mmol/L (137-145)
[2023-03-30 14:18] LABS: Potassium 3.6 mmol/L (3.5-5.1)
[2023-03-30 14:52] VITALS: BP 133/88; PULSE 54
--- NOTE | 2023-03-30 14:59 | CT ---
EXAMINATION TYPE: CT brain wo con DATE OF EXAM: 03/30/2023 COMPARISON: None HISTORY: 57-year-old male Vertigo, hx Meniere's disease TECHNIQUE: Examination was done in axial plane without intravenous contrast. Coronal and sagittal r econstructions performed. CT DLP: 1247.4 mGycm Automated exposure control for dose reduction was used. FINDINGS: There is no evidence of acute intracranial hemorrhage, acute ischemic changes, mass, mass-effect, or extra-axial fluid collection. There is no effacement of cerebral sulci or basal subarachnoid cister ns. There is no hydrocephalus. There is no midline shift. Cao-white matter distinction is preserv ed. Moderate mucosal thickening ethmoid air cells and left frontal sinus. Trace within the sphenoid sinus es. Rightward nasal septal deviation. Orbits and globes are intact. Mastoid air cells are well pneumatize d. IMPRESSION: No acute intracranial abnormality seen. Moderate chronic ethmoid and left frontal sinus disease.
== END 2023-03-30 15:00 | disposition home or self-care (01) ==
LOC: EC 11:58
DX: R42 Dizziness and giddiness (principal); Z88.0 Allergy status to penicillin; Z91.040 Latex allergy status; Z88.7 Allergy status to serum and vaccine
CPT/HCPCS: 36415; 93005; 80048; 85025; 70450; 99284; 96374; J2765

== ENCOUNTER 2023-04-03 17:21 | Observation (INO) | payer BC ==
--- NOTE | 2023-04-03 17:31 | ED ---
General Adult HPI - General Source: RN notes reviewed <Paige Mejia - Last Filed: 04/03/23 17:30> <Sanjeev Cartwright - Last Filed: 04/03/23 20:25> - General Stated complaint: AFib Time Seen by Provider: 04/03/23 17:31 - History of Present Illness Initial comments: 58-year-old male presents from his PCP office with a chief complaint of palpitations. Patient reports getting any diagnosis of atrial fibrillation. He denies anticoagulation. Denies shortness of breath. He does admit to chest pain. I performed a quick note portion of this exam: Paige Mejia PA-C (Paige Mejia) This is a 58-year-old male who presents to the emergency department stating that he has been treated recently for vertigo. Patient states he had a renal work this morning because he is having vertigo. Patient states he went to his doctor's office because he was having palpitations and he was told he had atrial fibrillation and he never had before so was told to go to the emergency department. Patient states while he was in the waiting room started ex periencing chest heaviness for about an hour. Patient states was no radiation of the pain was no difficulty breathing is no diaphoresis but he pain is something he normally does not get. Patient states he also is having intermittent episodes of palpitations. Patient states currently he is chest p ain-free and there are no palpitations. However while talking with the patient about staying or going home patient flipped into rhythm of 150 beats a minute it looked fairly regular consistent with possibly atrial flutter but it was short- lived only lasting about 15 seconds. During that time he could feel palpitations and chest pain (Sanjeev Cartwright) - Related Data Home Medications Medication Instructions Recorded Confirmed hydroCHLOROthiazide 50 mg PO BID 03/11/21 04/03/23 Calcium Carb/Mag Ox/Zinc Sulf 1 tab PO BID 04/03/23 04/03/23 [Bah-Pfi-Zsog 334-134-5 mg Tab] Glucosam/Pratik-Msm1/C/Zeferino/Bosw 1 tab PO BID 04/03/23 04/03/23 [Glucosamine-Chondroitin Tablet] Meclizine [Antivert] 25 mg PO TID PRN 04/03/23 04/03/23 Naproxen Sodium [Aleve] 220 mg PO QID PRN 04/03/23 04/03/23 [place]-3/Dha/Epa/Fish Oil [Fish Oil 1 cap PO BID 04/03/23 04/03/23 1,000 mg Softgel] Previous Rx's Medication Instructions Recorded Metoclopramide [Reglan] 10 mg PO TID PRN #12 tab 03/30/23 Allergies Allergy/AdvReac Type Severity Reaction Status Date / Time amoxicillin Allergy Rash/Hives Verified 04/03/23 19:44 COVID-19 vaccine, mRNA, Allergy Swelling Verified 04/03/23 19:44 [id number], L latex AdvReac Rash/Hives Verified 04/03/23 19:44 Review of Systems ROS Other: All systems not noted in ROS Statement are negative. <Paige Mejia - Last Filed: 04/03/23 17:30> ROS Other: All systems not noted in ROS Statement are negative. <Sanjeev Cartwright - Last Filed: 04/03/23 20:25> ROS Statement: Those systems with pertinent positive or pertinent negative responses have been documented in the HPI. Past Medical History Past Medical History: Hyperlipidemia, Osteoarthritis (OA) Additional Past Medical History / Comment(s): ECHO SCHEDULED SUNDAY FOR EVAL. BACK PAIN, meinger's disease History of Any Multi-Drug Resistant Organisms: None Reported Past Surgical History: Back Surgery Additional Past Surgical History / Comment(s): L1-L2 RUPTURE HX 2003, Past Anesthesia/Blood Transfusion Reactions: No Reported Reaction Past Psychological History: No Psychological Hx Reported Smoking Status: Never smoker Past Alcohol Use History: None Reported Past Drug Use History: None Reported - Past Family History Father History Unknown: Yes Additional Family Medical History / Comment(s): cataract; glaucoma Mother History Unknown: Yes Family Medical History: No Reported History <Paige Mejia - Last Filed: 04/03/23 17:30> General Exam <Paige Mejia - Last Filed: 04/03/23 17:30> <Sanjeev Cartwright - Last Filed: 04/03/23 20:25> - General Exam Comments Initial Comments: Visual Physical Exam Vital signs reviewed General: Well-appearing, nontoxic, no acute distress. Head: Normocephalic, atraumatic Eyes: PERRLA, EOMI ENT: Airway patent Chest: Nonlabored breathing Skin: No visual rash, normal skin tone Neuro: Alert and oriented 3 Musculoskeletal: No gross abnormalities (Paige Mejia) GENERAL: Patient is well-developed and well-nourished. Patient is nontoxic and well- hydrated and is in no acute distress. ENT: Neck is soft and supple. No significant lymphadenopathy is noted. Oropharynx is clear. Moist mucous membranes. Neck has full range of motion without eliciting any pain. EYES: The sclera were anicteric and conjunctiva were pink and moist. Extraocular movements were intact and pupils were equal round and reactive to light. Eyelids were unremarkable. PULMONARY: Unlabored respirations. Good breath sounds bilaterally. No audible rales rh onchi or wheezing was noted. CARDIOVASCULAR: There is a regular rate and rhythm without any murmurs gallops or rubs. ABDOMEN: Soft and nontender with normal bowel sounds. SKIN: Skin is clear with no lesions or rashes and otherwise unremarkable. NEUROLOGIC: Patient is alert and oriented x3. Cranial nerves II through XII are grossly intact. Motor and sensory are also intact. Normal speech, volume and content. Symmetrical smile. MUSCULOSKELETAL: Normal extremities with adequate strength and full range of motion. LYMPHATICS: No significant lymphadenopathy is noted PSYCHIATRIC: Normal psychiatric evaluation. (Sanjeev Cartwright) Course Vital Signs 04/03/23 04/03/23 17:40 19:39 Temperature 97.8 F 98.2 F Pulse Rate 69 68 Respiratory 20 18 Rate Blood Pressure 158/91 134/88 O2 Sat by Pulse 96 Oximetry Medical Decision Making - Lab Data Result diagrams: 04/03/23 17:40 04/03/23 17:40 <Sanjeev Cartwright - Last Filed: 04/03/23 20:25> - Medical Decision Making EKG was interpreted by myself EKG shows a sinus rhythm with an occasional PAC at 70 bpm MA interval 200 670 dresses 111 QT interval is 390 QTC is 423. Patient's EKG shows no ST segment elevation or depression. Was pt. sent in by a medical professional or institution (, PA, M[employer]ASSES [employer] OPERATOR, urgent care, hospital, or residential...) When possible be specific @ -Primary medical care doctor sent the patient to the hospital for A. fib Did you speak to anyone other than the patient for history (EMS, parent, family, police, friend...)? What history was obtained from this source @ -No Did you review nursing and triage notes (agree or disagree)? Why? @ -I reviewed and agree with nursing and triage notes Were old charts reviewed (outside hosp., previous admission, EMS record, old EKG, old radiological studies, urgent care reports/EKG's, residential records)? Report findings @ -I reviewed prior charts on this patient and prior EKGs Differential Diagnosis (chest pain, altered mental status, abdominal pain women, abdominal pain men, vaginal bleeding, weakness, fever, dyspnea, syncope, headache, dizziness, GI bleed, back pain, seizure, CVA, palpatations, mental health, musculoskeletal)? @ -Differential Palpitations Ventricular arrhythmias, atrial arrhythmias, myocardial infarction, anemia, thyrotoxicosis, electrolyte imbalance, hypokalemia, pulmonary embolism, pulmonary disease, drugs, alcohol, anxiety, stress.... This is not meant to be an all-inclusive list. Differential Chest Pain: Stable Angina, Unstable Angina, STEMI, NSTEMI Aortic Dissection, Pneumothorax, Musculoskeletal, Esophageal Spasm GERD, Cholecystitis, Pancreatitis, Zoster, this is not meant to be an all-inclusive list. EKG interpreted by me (3pts min.). @ -As above X-rays interpreted by me (1pt min.). @ -Chest x-ray shows no acute abnormality CT interpreted by me (1pt min.). @ -None done U/S interpreted by me (1pt. min.). @ -None done What testing was considered but not performed or refused? (CT, X-rays, U/S, labs)? Why? @ -None What meds were considered but not given or refused? Why? @ -None Did you discuss the management of the patient with other professionals ( professionals i.e. , PA, M[employer] OPERATOR, lab, RT, psych nurse, certified social workers in health care, clean rice grader and reel tender, teacher, artillery officer, corrections caseworker)? Give summary @ -I spoke with the [facility] hospitalist and they agreed to admit the patient Was smoking cessation discussed for >3mins.? @ -No Was critical care preformed (if so, how long)? @ -35 minutes Were there social determinants of health that impacted care today? How? (Homelessness, low income, unemployed, alcoholism, drug addiction, transportation, low edu. Level, literacy, decrease access to med. care, [facility], rehab)? @ -No Was there de-escalation of care discussed even if they declined (Discuss DNR or withdrawal of care, Hospice)? DNR status @ -No What co-morbidities impacted this encounter? (DM, HTN, Smoking, COPD, CAD, Cancer, CVA, ARF, Chemo, Hep., AIDS, mental health diagnosis, sleep apnea, morbid obesity)? @ -None Was patient admitted / discharged? Hospital course, mention meds given and route, prescriptions, significant lab abnormalities, going to OR and other pertinent info. @ -Patient initially was in a sinus rhythm with occasional PACs however while talking to the patient he jumped into a rate at about 150 beats a minute it appeared to be atrial flutter but we never got an EKG of it. Patient also had expressive hours worth of chest pain so I thought there was another reason he needed to stay. I heparinized the patient and I put him on a slow Cardizem drip and I consulted [facility] Undiagnosed new problem with uncertain prognosis? @ -No Drug Therapy requiring intensive monitoring for toxicity (Heparin, Nitro, Insulin, Cardizem)? @ -No Were any procedures done? @ -No Diagnosis/symptom? @ -New onset atrial flutter Acute, or Chronic, or Acute on Chronic? @ -Acute Uncomplicated (without systemic symptoms) or Complicated (systemic symptoms)? @ -Complicated Side effects of treatment? @ -No Exacerbation, Progression, or Severe Exacerbation? @ -No Poses a threat to life or bodily function? How? (Chest pain, USA, NC, pneumonia, PE, COPD, DKA, ARF, appy, cholecystitis, CVA, Diverticulitis, Homicidal, Suicid al, threat to staff... and all critical care pts) @ -Yes this could lead to poor perfusion and end organ dysfunction Diagnosis/symptom? @ -Chest pain Acute, or Chronic, or Acute on Chronic? @ -Acute Uncomplicated (without systemic symptoms) or Complicated (systemic symptoms)? @ -, Complicated Side effects of treatment? @ -none Exacerbation, Progression, or Severe Exacerbation] @ -no Poses a threat to life or bodily function? @ -Yes this could lead to an NC and end organ dysfunction (Sanjeev Cartwright) - Lab Data Lab Results 04/03/23 04/03/23 04/03/23 Range/Units 17:40 17:40 17:40 WBC 9.8 (3.8-10.6) k/uL RBC 5.08 (4.30-5.90) m/uL Hgb 15.9 (13.0-17.5) gm/dL Hct 45.2 (39.0-53.0) % MCV 89.0 (80.0-100.0) fL MCH 31.3 (25.0-35.0) pg MCHC 35.2 (31.0-37.0) g/dL RDW 13.4 (11.5-15.5) % Plt Count 200 (150-450) k/uL MPV 7.5 Neutrophils % 71 % Lymphocytes % 20 % Monocytes % 6 % Eosinophils % 1 % Basophils % 0 % Neutrophils # 7.0 (1.3-7.7) k/uL Lymphocytes # 2.0 (1.0-4.8) k/uL Monocytes # 0.6 (0-1.0) k/uL Eosinophils # 0.1 (0-0.7) k/uL Basophils # 0.0 (0-0.2) k/uL PT 11.0 (9.0-12.0) sec INR 1.1 (<1.2) APTT 22.6 (22.0-30.0) sec Sodium 141 (137-145) mmol/L Potassium 3.2 L (3.5-5.1) mmol/L Chloride 102 (98-107) mmol/L Carbon Dioxide 27 (22-30) mmol/L Anion Gap 12 mmol/L BUN 20 (9-20) mg/dL Creatinine 0.68 (0.66-1.25) mg/dL Est GFR (CKD-EPI)AfAm >90 (>60 ml/min/1.73 sqM) Est GFR (CKD-EPI)NonAf >90 (>60 ml/min/1.73 sqM) Glucose 99 (74-99) mg/dL Calcium 9.7 (8.4-10.2) mg/dL Magnesium 1.8 (1.6-2.3) mg/dL Total Bilirubin 0.7 (0.2-1.3) mg/dL AST 52 (17-59) U/L ALT 56 H (4-49) U/L Alkaline Phosphatase 71 (38-126) U/L Troponin I (0.000-0.034) ng/mL Total Protein 7.9 (6.3-8.2) g/dL Albumin 4.7 (3.5-5.0) g/dL 04/03/23 Range/Units 17:40 WBC (3.8-10.6) k/uL RBC (4.30-5.90) m/uL Hgb (13.0-17.5) gm/dL Hct (39.0-53.0) % MCV (80.0-100.0) fL MCH (25.0-35.0) pg MCHC (31.0-37.0) g/dL RDW (11.5-15.5) % Plt Count (150-450) k/uL MPV Neutrophils % % Lymphocytes % % Monocytes % % Eosinophils % % Basophils % % Neutrophils # (1.3-7.7) k/uL Lymphocytes # (1.0-4.8) k/uL Monocytes # (0-1.0) k/uL Eosinophils # (0-0.7) k/uL Basophils # (0-0.2) k/uL PT (9.0-12.0) sec INR (<1.2) APTT (22.0-30.0) sec Sodium (137-145) mmol/L Potassium (3.5-5.1) mmol/L Chloride (98-107) mmol/L Carbon Dioxide (22-30) mmol/L Anion Gap mmol/L BUN (9-20) mg/dL Creatinine (0.66-1.25) mg/dL Est GFR (CKD-EPI)AfAm (>60 ml/min/1.73 sqM) Est GFR (CKD-EPI)NonAf (>60 ml/min/1.73 sqM) Glucose (74-99) mg/dL Calcium (8.4-10.2) mg/dL Magnesium (1.6-2.3) mg/dL Total Bilirubin (0.2-1.3) mg/dL AST (17-59) U/L ALT (4-49) U/L Alkaline Phosphatase (38-126) U/L Troponin I <0.012 (0.000-0.034) ng/mL Total Protein (6.3-8.2) g/dL Albumin (3.5-5.0) g/dL Critical Care Time Critical Care Time: Yes Total Critical Care Time: 35 <Sanjeev Cartwright - Last Filed: 04/03/23 20:25> Disposition <Paige Mejia - Last Filed: 04/03/23 17:30> Time of Disposition: 20:24 <Sanjeev Cartwright - Last Filed: 04/03/23 20:25> Clinical Impression: Chest pain, New onset atrial flutter Disposition: ADMITTED IP TO THIS HOSP Referrals: Ken Rider MD [Primary Care Provider] - 1-2 days
[2023-04-03 17:53] LABS: Basophils % (A) 0 %; Eosinophils # (A) 0.1 k/uL (0-0.7); Eosinophils % (A) 1 %; HCT 45.2 % (39.0-53.0); HGB 15.9 gm/dL (13.0-17.5); Lymphocytes % (A) 20 %; MCH 31.3 pg (25.0-35.0); MCHC 35.2 g/dL (31.0-37.0); Mean Platelet Volume 7.5; Monocytes # (A) 0.6 k/uL (0-1.0); Monocytes % (A) 6 %; Neutrophils % (A) 71 %; Platelet Count 200 k/uL (150-450); RBC 5.08 m/uL (4.30-5.90); RDW 13.4 % (11.5-15.5); WBC 9.8 k/uL (3.8-10.6)
[2023-04-03 18:05] LABS: INR 1.1 (<1.2); Partial Thromboplastin Time 22.6 sec (22.0-30.0)
[2023-04-03 18:13] LABS: ALT 56 U/L (4-49); AST 52 U/L (17-59); African American GFR (CKD) >90 (>60 ml/min/1.73 sqM); Albumin 4.7 g/dL (3.5-5.0); Alkaline Phosphatase 71 U/L (38-126); Anion Gap 12 mmol/L; Blood Urea Nitrogen 20 mg/dL (9-20); Calcium 9.7 mg/dL (8.4-10.2); Carbon Dioxide 27 mmol/L (22-30); Chloride 102 mmol/L (98-107); Glucose 99 mg/dL (74-99); Magnesium 1.8 mg/dL (1.6-2.3); Non-African American GFR(CKD) >90 (>60 ml/min/1.73 sqM); Potassium 3.2 mmol/L (3.5-5.1); Sodium 141 mmol/L (137-145); Total Bilirubin 0.7 mg/dL (0.2-1.3); Total Protein 7.9 g/dL (6.3-8.2)
--- NOTE | 2023-04-03 18:16 | XR ---
EXAMINATION TYPE: XR chest 2V DATE OF EXAM: 04/03/2023 6:09 PM COMPARISON: Chest radiographs from 03/11/2021 TECHNIQUE: XR chest 2V Frontal and lateral views of the chest. CLINICAL INDICATION:Male, 58 years old with history of chest pain; FINDINGS: Lungs/Pleura: There is no evidence of pleural effusion, focal consolidation, or pneumothorax. Pulmonary vascularity: Unremarkable. Heart/mediastinum: Cardiomediastinal silhouette is unremarkable. Musculoskeletal: No acute osseous pathology. Mild degenerative changes of the visualized spine. IMPRESSION: No acute cardiopulmonary disease/process.
[2023-04-03] MEDS ORDERED: HEPARIN SODIUM 1,000 UN/ML (10ML VL) IV ONE (20:24)
[2023-04-03] MEDS ORDERED: NITROGLYCERIN SL TABS 0.4 MG TAB SUBLINGUAL PRN (20:26)
[2023-04-03] MEDS ORDERED: DILTIAZEM 125 MG in SODIUM CHLORIDE 0.9% 100 ML IV SCH (20:30)
[2023-04-03] MEDS: HEPARIN SOD,PORK IN 0.45% NACL 25,000 UNIT in 0.45% NACL 1 250ML.BAG IV SCH (21:20)
[2023-04-03] MEDS: hydroCHLOROthiazide 25 MG TAB PO SCH (21:40)
[2023-04-04] MEDS: NITROGLYCERIN OINT 1 INCH/GM PACKET TOPICAL SCH ×4 (00:12→18:27)
[2023-04-04] MEDS ORDERED: ALPRAZolam 0.5 MG TAB PO PRN (06:54)
--- NOTE | 2023-04-04 06:54 | P.HPIM ---
History of Present Illness This is a pleasant 58 years old male with past medical history of Atrial Fibrillation, Hyperlipidemia, Osteoarthritis , chronic BACK PAIN, meinger's disease Patient presents because of A. fib. Yesterday he had a bad day at work, he works at [employer] and yesterday was exceptionally hard for him with a lot of problems. As he was leaving his work at 3 PM heading to his PCP appointment he developed chest pain. He supposed to see his PCP for routine follow-up for vertigo happened for him one week earlier as he describes. As he was driving he developed central and left chest pain, nonradiating about 6/10 in severity for like dull pain, but currently she is chest pain-free. At PCP office his heart was beating fast and he felt a little dizzy presyncope. He was tachycardic His PCP and EKG for him and showed A. fib so she referred him to the hospital. Patient denies dyspnea or coughing. No GI or urinary complaints. No headache weakness or numbness. He denies smoking alcohol or illicit drugs Patient was talking to Dr. Cartwright in the emergency room when his rhythm she wished to A. fib 15 seconds as per note. Given that time he had chest pain or palpitation. Patient was started on heparin drip and Cardizem drip and admitted with cardiology consult He is afebrile, currently mild bradycardic, rest of vitals are stable He had unremarkable labs except for mild hypokalemia. Troponin 3 is negative less than 0.012. EKG showing normal sinus rhythm at 78 with PVCs chest x-ray: No acute process While he is in the emergency room this morning he was given heparin drip and her crit in the monitor was about 50/m. Review of Systems Review of systems CONSTITUTIONAL: No fever, no malaise, no fatigue. HEENT: No recent visual problems or hearing problems. Denied any sore throat. CARDIOVASCULAR: No orthopnea, PND, no palpitations, no syncope. PULMONARY: No shortness of breath, no cough, no hemoptysis. GASTROINTESTINAL: No diarrhea, no nausea, no vomiting, no abdominal pain. Normoactive bowel sounds. NEUROLOGICAL: No headaches, no weakness, no numbness. HEMATOLOGICAL: Denies any bleeding or petechiae. GENITOURINARY: Denies any burning micturition, frequency, or urgency. MUSCULOSKELETAL/RHEUMATOLOGICAL: Denies any joint pain, swelling, or any muscle pain. ENDOCRINE: Denies any polyuria or polydipsia. Past Medical History Past Medical History: Atrial Fibrillation, Hyperlipidemia, Osteoarthritis (OA) Additional Past Medical History / Comment(s): ECHO SCHEDULED SUNDAY FOR EVAL. B ACK PAIN, meinger's disease History of Any Multi-Drug Resistant Organisms: None Reported Past Surgical History: Back Surgery Additional Past Surgical History / Comment(s): L1-L2 RUPTURE HX 2003, Past Anesthesia/Blood Transfusion Reactions: No Reported Reaction Past Psychological History: No Psychological Hx Reported Smoking Status: Never smoker Past Alcohol Use History: None Reported Past Drug Use History: None Reported - Past Family History Father History Unknown: Yes Additional Family Medical History / Comment(s): cataract; glaucoma Mother History Unknown: Yes Family Medical History: No Reported History Medications and Allergies Home Medications Medication Instructions Recorded Confirmed Type hydroCHLOROthiazide 50 mg PO BID 03/11/21 04/03/23 History Metoclopramide [Reglan] 10 mg PO TID PRN #12 tab 03/30/23 04/03/23 Rx Calcium Carb/Mag Ox/Zinc Sulf 1 tab PO BID 04/03/23 04/03/23 History [Ynd-Pkf-Jmqg 334-134-5 mg Tab] Glucosam/Pratik-Msm1/C/Zeferino/Bosw 1 tab PO BID 04/03/23 04/03/23 History [Glucosamine-Chondroitin Tablet] Meclizine [Antivert] 25 mg PO TID PRN 04/03/23 04/03/23 History Naproxen Sodium [Aleve] 220 mg PO QID PRN 04/03/23 04/03/23 History [place]-3/Dha/Epa/Fish Oil [Fish Oil 1 cap PO BID 04/03/23 04/03/23 History 1,000 mg Softgel] Allergies Allergy/AdvReac Type Severity Reaction Status Date / Time amoxicillin Allergy Rash/Hives Verified 04/03/23 19:44 COVID-19 vaccine, mRNA, Allergy Swelling Verified 04/03/23 19:44 [id number], L latex AdvReac Rash/Hives Verified 04/03/23 19:44 Physical Exam Vitals: Vital Signs Temp Pulse Resp BP Pulse Ox 04/04/23 06:00 97.5 F L 18 101/53 94 L 04/04/23 05:00 51 L 18 124/79 93 L 04/04/23 04:11 98.6 F 04/04/23 04:00 61 15 110/80 95 04/04/23 03:00 55 L 18 121/80 91 L 04/04/23 02:00 55 L 18 134/89 04/04/23 01:00 62 20 145/87 93 L 04/04/23 00:39 97.7 F 61 18 145/87 94 L 04/04/23 00:00 57 L 17 166/87 04/03/23 23:00 74 18 136/75 04/03/23 22:14 66 20 136/75 04/03/23 22:00 65 20 151/90 04/03/23 21:27 56 L 21 151/90 04/03/23 21:00 74 20 140/88 04/03/23 20:00 59 L 22 134/88 04/03/23 19:39 98.2 F 68 18 134/88 04/03/23 19:13 60 24 04/03/23 17:40 97.8 F 69 20 158/91 96 Intake and Output 04/03/23 04/03/23 04/04/23 14:59 22:59 06:59 Other: Weight 104.78 kg GENERAL: The patient is alert and oriented x3, not in any acute distress. Well developed, well nourished. HEENT: Pupils are round and equally reacting to light. EOMI. No scleral icterus. No conjunctival pallor. Normocephalic, atraumatic. No pharyngeal erythema. No thyromegaly. CARDIOVASCULAR: S1 and S2 present. No murmurs, rubs, or gallops. PULMONARY: Chest is clear to auscultation, no wheezing , no crackles. ABDOMEN: Soft, nontender, nondistended, normoactive bowel sounds. No palpable organomegaly. MUSCULOSKELETAL: No joint swelling or deformity. EXTREMITIES: No cyanosis, clubbing, or pedal edema. NEUROLOGICAL: Gross neurological examination did not reveal any focal deficits. SKIN: No rashes. no petechiae. Results CBC & Chem 7: 04/03/23 17:40 04/03/23 17:40 Labs: Abnormal Lab Results - Last 24 Hours (Table) 04/03/23 04/04/23 Range/Units 17:40 03:02 APTT 30.1 H (22.0-30.0) sec Potassium 3.2 L (3.5-5.1) mmol/L ALT 56 H (4-49) U/L Assessment and Plan Assessment: Paroxysmal atrial fibrillation's with RVR, present on admission. Chest pain, rule out cardiac causes Presyncope most likely secondary to above Hyperlipidemia History of osteoarthritis Chronic back pain Obesity with BMI of 33.1 Plan: Cardizem drip Is currently on hold Continue with heparin drip Cardiology consult Check echocardiogram Labs and medication were reviewed.. Continue same treatment. Continue with symptomatic treatment. Resume home medication. Monitor labs and vitals. DVT and GI prophylaxis. Further recommendations as per clinical course of the patient DVT prophylaxis: heparin GI Prophylaxis: Pepcid PT/OT: Pending Prognosis is guarded
[2023-04-04 07:46] LABS: African American GFR (CKD) >90 (>60 ml/min/1.73 sqM); Anion Gap 7 mmol/L; Blood Urea Nitrogen 23 mg/dL (9-20); Calcium 9.2 mg/dL (8.4-10.2); Carbon Dioxide 31 mmol/L (22-30); Chloride 101 mmol/L (98-107); Glucose 95 mg/dL (74-99); Magnesium 1.9 mg/dL (1.6-2.3); Non-African American GFR(CKD) >90 (>60 ml/min/1.73 sqM); Potassium 3.2 mmol/L (3.5-5.1); Sodium 139 mmol/L (137-145)
[2023-04-04] MEDS: hydroCHLOROthiazide 25 MG TAB PO SCH ×2 (08:10→22:12)
[2023-04-04] MEDS ORDERED: ASPIRIN 325 MG TAB PO SCH (09:00)
[2023-04-04 09:24] LABS: Chol/HDL Ratio 5.28 Ratio; LDL Cholesterol,Calculated 149.4 mg/dL (0.0-131.0)
[2023-04-04] MEDS ORDERED: HEPARIN SODIUM 1,000 UN/ML (10ML VL) IV PRN (10:33)
--- NOTE | 2023-04-04 11:45 | CA ---
Transthoracic Echo Report Name: David Cantu Age: 58 Gender: M : 1965 Exam Date: 04/04/2023 09:19 Exam Location: [facility] Ht (in): 70 Wt (lb): 231 Ordering Physician: Jah Pace MD Attending/Referring Phys: [id number], Sanjeev Social Work Supervisor Teddy Vergara Procedure CPT: Indications: Rule out heart disease Cardiac Hx: Technical Quality: Fair Contrast 1: Total Dose (mL): Contrast 2: Total Dose (mL): MEASUREMENTS (Male / Female) Normal Values 2D ECHO LV Diastolic Diameter PLAX 4.4 cm 4.2 - 5.9 / 3.9 - 5.3 cm LV Systolic Diameter PLAX 2.7 cm IVS Diastolic Thickness 1.4 cm 0.6 - 1.0 / 0.6 - 0.9 cm LVPW Diastolic Thickness 1.4 cm 0.6 - 1.0 / 0.6 - 0.9 cm LV Relative Wall Thickness 0.6 RV Internal Dim ED PLAX 4.3 cm LVOT Diameter 2.5 cm Aortic Root Diameter 3.5 cm LA Systolic Diameter LX 1.7 cm 3.0 - 4.0 / 2.7 - 3.8 cm LV Diastolic Volume MOD BP 79.1 cm??? 67 - 155 / 56 - 104 cm??? LV Systolic Volume MOD BP 39.7 cm??? - 58 / 19 - 49 cm??? LV Ejection Fraction MOD BP 49.9 % >= 55 % LV Cardiac Index MOD BP 786.1 cm???/min???m??? LV Diastolic Volume MOD 4C 85.2 cm??? LV Systolic Volume MOD 4C 39.9 cm??? LV Ejection Fraction MOD 4C 53.1 % LV Cardiac Index MOD 4C 902.5 cm???/min???m??? LV Diastolic Length 4C 7.4 cm LV Systolic Length 4C 6.5 cm LV Diastolic Volume MOD 2C 73.7 cm??? LV Systolic Volume MOD 2C 37.5 cm??? LV Ejection Fraction MOD 2C 49.2 % LV Cardiac Index MOD 2C 721.8 cm???/min???m??? LV Diastolic Length 2C 7.2 cm LV Systolic Length 2C 6.1 cm LA Volume 64.0 cm??? 18 - 58 / 22 - 52 cm??? Ascending Aorta Diameter 3.3 cm DOPPLER AV Peak Velocity 111.3 cm/s AV Peak Gradient 5.0 mmHg AV Mean Velocity 90.7 cm/s AV Mean Gradient 3.6 mmHg AV Velocity Time Integral 29.2 cm AI Peak Velocity 331.6 cm/s AI Peak Gradient 44.0 mmHg AI Pressure Half Time 697.6 ms LVOT Peak Velocity 105.2 cm/s LVOT Peak Gradient 4.4 mmHg AV Area Cont Eq pk 4.6 cm??? MV Peak Velocity 103.1 cm/s MV Peak Gradient 4.3 mmHg MV Mean Velocity 42.8 cm/s MV Mean Gradient 1.0 mmHg MV Velocity Time Integral 39.4 cm MR Peak Velocity 456.9 cm/s MR Peak Gradient 83.5 mmHg Mitral E Point Velocity 82.9 cm/s Mitral A Point Velocity 61.4 cm/s Mitral E to A Ratio 1.3 MV Deceleration Time 242.7 ms MV E' Velocity 5.5 cm/s Mitral E to MV E' Ratio 15.0 TR Peak Velocity 273.6 cm/s TR Peak Gradient 29.9 mmHg Right Ventricular Systolic Press 35.0 mmHg PV Peak Velocity 112.8 cm/s PV Peak Gradient 5.1 mmHg FINDINGS Left Ventricle Normal LV size and wall thickness. Left ventricular ejection fraction is estimated at _50-55 %. Right Ventricle Moderate right ventricular dilatation. RSVP= 33mmhg. Right Atrium Normal right atrial size. Left Atrium Normal left atrial size. LA volume index= 29ml/m2 Mitral Valve Structurally normal mitral valve. Aortic Valve Mild AV calcification. Mild to moderate AI. Tricuspid Valve Structurally normal tricuspid valve. Mild TR. Pulmonic Valve Pulmonic valve not well visualized. Mild PI. Pericardium Normal pericardium. Aorta Normal size aortic root and proximal ascending aorta. CONCLUSIONS Normal LV function Mild to moderate aortic regurgitation Previewed by: Dr. Vargas Thomas MD (Electronically Signed) Final Date: 04 April 2023 11:44
--- NOTE | 2023-04-04 15:36 | P.CRDCN ---
History of Present Illness Consult date: 04/04/23 Consult reason: atrial flutter (New onset atrial flutter, chest pain) History of present illness: History of present illness: This is a 58-year-old male patient last seen by Dr. Hurtado in 2020 with past medical history of hypertension, intraventricular conduction delay, chronic back pain. We have been asked to evaluate the patient for chest pain. He is history that he was here for vertigo on Sunday had a follow-up appointment with his PCP in the office and EKG was obtained thought to be atrial fibrillation and patient was instructed to come into the emergency center for further evaluation. The office EKG is not available to review. No shortness of breath. Patient does give history of intermittent episodes of palpitations. While the patient was in the emergency center, patient flipped into a rhythm at 150 bpm thought to be atrial flutter which only lasted for about 15 seconds. This also has not been captured on telemetry strips. Patient states that he has a racing heart and then he feels vertigo following that.. He also gives history of having Mnire's disease. No history of smoking. EKG sinus rhythm 78 bpm, incomplete right bundle branch block Chest x-ray: No acute process CBC unremarkable. Sodium 139, potassium 3.2, BUN 23 creatinine 0.68. Troponin negative 3. Magnesium 1.9. Cholesterol 211, LDL 149, triglycerides 108. TSH 2.03 Home cardiac medications: Hydrochlorothiazide 50 mg twice daily Review Of Systems: At the time of my evaluation: Constitutional: No fever, no chills. No weakness, fatigue or lethargy. EENT: No headache. Reports vertigo. Lungs: No shortness of breath, cough, no sputum production. No wheezing. Cardiovascular: No chest pain, no lower extremity edema. + palpitations. No paroxysmal nocturnal dyspnea. No orthopnea. No lightheadedness or dizziness. No syncopal episodes. Abdominal: No abdominal pain. No nausea, vomiting. No diarrhea. No constipation. No bloody or tarry stools. Musculoskeletal: No myalgias. No muscle weakness, no frequent falls. Integumentary: No wounds. No rash. Neurologic: No aphasia. No facial droop. No change in mentation. Physical examination: Gen: This is a 58-year-old male. He is resting on the ER stretcher and appears to be comfortable. VS: reviewed blood pressure 134/73, heart rate 96, pulse ox 99% on room air, afebrile. HEENT: Head is atraumatic, normocephalic. Pupils equal, round. Sclerae is anicteric. NECK: Supple. No JVD. . LUNGS: Clear to auscultation. No wheezes or rhonchi. No intercostal r etractions. HEART: Regular rate and rhythm. No murmur. ABDOMEN: Soft No tenderness. EXTREMITIES: No pedal edema. No calf tenderness. NEUROLOGICAL: Patient is awake, alert and oriented x3. Assessment: Possible Atrial flutter with RVR--nursing to obtain EKGs from Dr. Rider office Hypertension Intraventricular conduction defect Left ventricular hypertrophy Hypertension Plan: Continue home medications Continue home cardiac medications Add Lopressor 12.5 mg twice daily Obtain 2-D echocardiogram and Doppler study to assess cardiac structure and function Further recommendations to follow based upon clinical course Thank you kindly for this consultation. Nurse practitioner note has been reviewed, I agree with documented findings and plan of care. Patient was seen and examined. Past Medical History Past Medical History: Atrial Fibrillation, Hyperlipidemia, Osteoarthritis (OA) Additional Past Medical History / Comment(s): ECHO SCHEDULED SUNDAY FOR EVAL. BACK PAIN, meinger's disease History of Any Multi-Drug Resistant Organisms: None Reported Past Surgical History: Back Surgery Additional Past Surgical History / Comment(s): L1-L2 RUPTURE HX 2003, Past Anesthesia/Blood Transfusion Reactions: No Reported Reaction Past Psychological History: No Psychological Hx Reported Smoking Status: Never smoker Past Alcohol Use History: None Reported Past Drug Use History: None Reported - Past Family History Father History Unknown: Yes Additional Family Medical History / Comment(s): cataract; glaucoma Mother History Unknown: Yes Family Medical History: No Reported History Medications and Allergies Home Medications Medication Instructions Recorded Confirmed Type hydroCHLOROthiazide 50 mg PO BID 03/11/21 04/03/23 History Metoclopramide [Reglan] 10 mg PO TID PRN #12 tab 03/30/23 04/03/23 Rx Calcium Carb/Mag Ox/Zinc Sulf 1 tab PO BID 04/03/23 04/03/23 History [Egv-Nnt-Xafn 334-134-5 mg Tab] Glucosam/Pratik-Msm1/C/Zeferino/Bosw 1 tab PO BID 04/03/23 04/03/23 History [Glucosamine-Chondroitin Tablet] Meclizine [Antivert] 25 mg PO TID PRN 04/03/23 04/03/23 History Naproxen Sodium [Aleve] 220 mg PO QID PRN 04/03/23 04/03/23 History [place]-3/Dha/Epa/Fish Oil [Fish Oil 1 cap PO BID 04/03/23 04/03/23 History 1,000 mg Softgel] Allergies Allergy/AdvReac Type Severity Reaction Status Date / Time amoxicillin Allergy Rash/Hives Verified 04/03/23 19:44 COVID-19 vaccine, mRNA, Allergy Swelling Verified 04/03/23 19:44 [id number], L latex AdvReac Rash/Hives Verified 04/03/23 19:44 Physical Exam Vitals: Vital Signs Temp Pulse Resp BP Pulse Ox 04/04/23 09:00 98.7 F 96 18 134/73 99 04/04/23 08:12 57 L 16 118/69 04/04/23 06:00 97.5 F L 18 101/53 94 L 04/04/23 05:00 51 L 18 124/79 93 L 04/04/23 04:11 98.6 F 04/04/23 04:00 61 15 110/80 95 04/04/23 03:00 55 L 18 121/80 91 L 04/04/23 02:00 55 L 18 134/89 04/04/23 01:00 62 20 145/87 93 L 04/04/23 00:39 97.7 F 61 18 145/87 94 L 04/04/23 00:00 57 L 17 166/87 04/03/23 23:00 74 18 136/75 04/03/23 22:14 66 20 136/75 04/03/23 22:00 65 20 151/90 04/03/23 21:27 56 L 21 151/90 04/03/23 21:00 74 20 140/88 04/03/23 20:00 59 L 22 134/88 04/03/23 19:39 98.2 F 68 18 134/88 04/03/23 19:13 60 24 04/03/23 17:40 97.8 F 69 20 158/91 96 Intake and Output 04/03/23 04/04/23 04/04/23 22:59 06:59 14:59 Other: Weight 104.78 kg Results 04/03/23 17:40 04/04/23 07:04 Cardiac Enzymes 04/03/23 04/03/23 04/03/23 Range/Units 17:40 17:40 22:06 AST 52 (17-59) U/L Troponin I <0.012 <0.012 (0.000-0.034) ng/mL 04/04/23 Range/Units 00:34 AST (17-59) U/L Troponin I <0.012 (0.000-0.034) ng/mL Coagulation 04/03/23 04/04/23 Range/Units 17:40 03:02 PT 11.0 (9.0-12.0) sec APTT 22.6 30.1 H (22.0-30.0) sec Lipids 04/04/23 Range/Units 03:02 Triglycerides 108.00 (0.00-149.00) mg/dL Cholesterol 211.00 H (0.00-200.00) mg/dL HDL Cholesterol 40.00 (40.00-60.00) mg/dL Cholesterol/HDL Ratio 5.28 Ratio CBC 04/03/23 Range/Units 17:40 WBC 9.8 (3.8-10.6) k/uL RBC 5.08 (4.30-5.90) m/uL Hgb 15.9 (13.0-17.5) gm/dL Hct 45.2 (39.0-53.0) % Plt Count 200 (150-450) k/uL Comprehensive Metabolic Panel 04/03/23 04/04/23 Range/Units 17:40 07:04 Sodium 141 139 (137-145) mmol/L Potassium 3.2 L 3.2 L (3.5-5.1) mmol/L Chloride 102 101 (98-107) mmol/L Carbon Dioxide 27 31 H (22-30) mmol/L BUN 20 23 H (9-20) mg/dL Creatinine 0.68 0.68 (0.66-1.25) mg/dL Glucose 99 95 (74-99) mg/dL Calcium 9.7 9.2 (8.4-10.2) mg/dL AST 52 (17-59) U/L ALT 56 H (4-49) U/L Alkaline Phosphatase 71 (38-126) U/L Total Protein 7.9 (6.3-8.2) g/dL Albumin 4.7 (3.5-5.0) g/dL Current Medications Generic Name Dose Route Start Last Admin Trade Name Freq PRN Reason Stop Dose Admin Alprazolam 0.5 mg 04/04/23 06:54 Alprazolam 0.5 Mg Tab PO BID PRN Anxiety Aspirin 325 mg 04/04/23 09:00 04/04/23 08:10 Aspirin 325 Mg Tab PO 325 mg DAILY JULISA Administration Hydrochlorothiazide 50 mg 04/03/23 21:30 04/04/23 08:10 Hydrochlorothiazide 25 Mg Tab PO 50 mg BID JULISA Administration Heparin Sodium/Sodium Chloride 250 mls @ 9.999 mls/hr 04/03/23 20:30 04/03/23 21:20 25,000 unit/ Sodium Chloride IV 9.543 units/kg/hr .Q24H JULISA 9.999 mls/hr Administration Protocol 9.543 UNITS/KG/HR Diltiazem HCl 125 mg/ Sodium 125 mls @ 5 mls/hr 04/03/23 20:30 04/03/23 21:38 Chloride IV Not Given .Q24H JULISA 5 MG/HR Nitroglycerin 0.4 mg 04/03/23 20:26 Nitroglycerin Sl Tabs 0.4 Mg Tab SUBLINGUAL Q5M PRN Chest Pain Nitroglycerin 1 inch 04/04/23 00:00 04/04/23 05:51 Nitroglycerin Oint 1 Inch/Gm Packet TOPICAL Not Given Q6HR JULISA Intake and Output 04/03/23 04/04/23 04/04/23 22:59 06:59 14:59 Other: Weight 104.78 kg 04/03/23 17:40 04/04/23 07:04
[2023-04-04] MEDS: METOPROLOL TARTRATE 12.5 MG TAB PO SCH ×2 (16:40→22:12)
[2023-04-04] MEDS: HEPARIN SOD,PORK IN 0.45% NACL 25,000 UNIT in 0.45% NACL 1 250ML.BAG IV SCH (18:42)
[2023-04-05] MEDS: NITROGLYCERIN OINT 1 INCH/GM PACKET TOPICAL SCH ×2 (00:47→06:15)
[2023-04-05] MEDS ORDERED: Magnesium Replacement Protocol 1 EACH MISC MISCELLANE PRN (05:55)
[2023-04-05] MEDS ORDERED: Potassium Replacement Protocol 1 EACH MISC MISCELLANE PRN (05:55)
[2023-04-05 07:01] LABS: Basophils % (A) 1 %; Eosinophils # (A) 0.3 k/uL (0-0.7); Eosinophils % (A) 5 %; HCT 45.1 % (39.0-53.0); HGB 15.6 gm/dL (13.0-17.5); Lymphocytes # (A) 2.1 k/uL (1.0-4.8); Lymphocytes % (A) 33 %; MCH 31.5 pg (25.0-35.0); MCHC 34.6 g/dL (31.0-37.0); MCV 91.1 fL (80.0-100.0); Mean Platelet Volume 7.6; Monocytes # (A) 0.4 k/uL (0-1.0); Monocytes % (A) 6 %; Neutrophils # (A) 3.4 k/uL (1.3-7.7); Neutrophils % (A) 54 %; Platelet Count 168 k/uL (150-450); RBC 4.94 m/uL (4.30-5.90); RDW 13.5 % (11.5-15.5); WBC 6.3 k/uL (3.8-10.6)
[2023-04-05 07:13] LABS: African American GFR (CKD) >90 (>60 ml/min/1.73 sqM); Anion Gap 7 mmol/L; Blood Urea Nitrogen 23 mg/dL (9-20); Calcium 8.7 mg/dL (8.4-10.2); Carbon Dioxide 27 mmol/L (22-30); Chloride 102 mmol/L (98-107); Glucose 99 mg/dL (74-99); Magnesium 1.9 mg/dL (1.6-2.3); Non-African American GFR(CKD) >90 (>60 ml/min/1.73 sqM); Potassium 3.3 mmol/L (3.5-5.1); Sodium 136 mmol/L (137-145)
[2023-04-05 08:35] VITALS: BP 136/78; PULSE 46; RESP 16; TEMP 98.1
[2023-04-05] MEDS: hydroCHLOROthiazide 25 MG TAB PO SCH (08:44)
[2023-04-05] MEDS ORDERED: ASPIRIN 81 MG PO SCH (09:00)
--- NOTE | 2023-04-05 10:17 | P.PN ---
Subjective HISTORY OF PRESENT ILLNESS: This is a 58-year-old male patient last seen by Dr. Hurtado in 2020 with past medical history of hypertension, intraventricular conduction delay, chronic back pain. We have been asked to evaluate the patient for chest pain. He is history that he was here for vertigo on Sunday had a follow-up appointment with his PCP in the office and EKG was obtained thought to be atrial fibrillation and patient was instructed to come into the emergency center for further evaluation. The office EKG is not available to review. No shortness of breath. Patient does give history of intermittent episodes of palpitations. While the patient was in the emergency center, patient flipped into a rhythm at 150 bpm thought to be atrial flutter which only lasted for about 15 seconds. This also has not been captured on telemetry strips. Patient states that he has a racing heart and then he feels vertigo following that.. He also gives history of having Mnire's disease. No history of smoking. EKG sinus rhythm 78 bpm, incomplete right bundle branch block Chest x-ray: No acute process CBC unremarkable. Sodium 139, potassium 3.2, BUN 23 creatinine 0.68. Troponin negative 3. Magnesium 1.9. Cholesterol 211, LDL 149, triglycerides 108. TSH 2.03 Home cardiac medications: Hydrochlorothiazide 50 mg twice daily 04/05/2023 Patient examined this morning at the bedside. Patient denies chest pain or pressure. He denies shortness of breath. EKG obtained from PCP office r evealing atrial fibrillation with RVR. Patient is maintaining sinus mechanism this morning. Patient does report having an episode of chest pain yesterday however he denies chest pain this morning. Echocardiogram completed revealing ejection fraction 50-55% with mild to moderate aortic regurgitation. PHYSICAL EXAM: VITAL SIGNS: Reviewed. GENERAL: Well-developed in no acute distress. NECK: Supple. No JVD or thyromegaly LUNGS: Respirations even and unlabored. Lungs essentially clear to auscultation bilaterally. HEART: Regular rate and rhythm. S1 and S2 heard. Diastolic murmur noted. EXTREMITIES: Normal range of motion. No clubbing or cyanosis. Peripheral pulses intact. No lower extremity edema ASSESSMENT: Vertigo New onset paroxysmal atrial fibrillation with RVR, currently maintaining sinus mechanism Chest pain, acute coronary syndrome ruled out History of hypertension Mild to moderate aortic regurgitation PLAN: 2-D echo obtained and reviewed Discontinue IV heparin. Patient does not require anticoagulation secondary to CHADSVASC score of 0 Continue metoprolol Continue telemetry monitoring Patient to undergo stress echo today. If negative, he may be discharged home from a cardiac standpoint Nurse practitioner note has been reviewed by physician. Signing provider agrees with the documented findings, assessment, and plan of care. Objective - Vital Signs Vital signs: Vital Signs Temp 98.1 F 04/05/23 08:00 Pulse 46 L 04/05/23 08:00 Resp 16 04/05/23 08:00 BP 136/78 04/05/23 08:00 Pulse Ox 97 04/05/23 08:28 FiO2 21 04/05/23 08:28 Intake & Output 04/04/23 04/05/23 04/05/23 18:59 06:59 18:59 Intake Total 239.845 Balance 239.845 Weight 104.78 kg Intake: Intake, IV Titration 239.845 Amount Heparin Sod,Pork in 0.45% 239.845 NaCl 25,000 unit In 0.45 % NaCl 1 250ml.bag @ 9. 543 UNITS/KG/HR 9.999 mls /hr IV .Q24H JULISA Rx#: [id number] Other: Voiding Method Toilet # Voids 1 1 - Labs CBC & Chem 7: 04/05/23 06:40 04/05/23 06:40 Labs: Abnormal Lab Results - Last 24 Hours (Table) 04/04/23 04/05/23 04/05/23 Range/Units 16:26 06:40 06:40 APTT 48.3 H 36.8 H (22.0-30.0) sec Sodium 136 L (137-145) mmol/L Potassium 3.3 L (3.5-5.1) mmol/L BUN 23 H (9-20) mg/dL
[2023-04-05] MEDS: METOPROLOL TARTRATE 12.5 MG TAB PO SCH (10:33)
--- NOTE | 2023-04-05 11:10 | CA ---
Stress Echo Report David Cantu Age: 58 Gender: M : 1965 Exam Date: 04/05/2023 09:14 Exam Location: [facility] Ht (in): 70 Wt (lb): 230 Ordering Physician: Eva Rollins Referring Physician: [id number] [employer] Di[employer] Machine Operator: Brenna Lorenzo [facility] Technologist Procedure CPT: Indication: CP ICD-9 Codes: Rhythm: Patient History: CHEST PAIN, DIFFICULTY IN BREATHING, PALPITATIONS, ELEVATED CHOLESTEROL LEVELS Cardiac Medications: Medications in past 24 hours: Contrast: Stress Results Protocol: Andrews Total dose(mL): Exercise Duration (min:sec): Max ST Depression (mm): Angina Score: Clemente Score: METS: 10.3 Resting HR: 68 Resting BP: 135 / 76 Peak HR: 130 Peak BP: 244 / 90 Max Predicted HR: 163 80 % Max Predicted HR Target HR: 139 Double Product: [id number] Stress Summary: BP Response: Reason for Termination: TARGET HR/MAX EXERTION Cardiac Symptoms: NO SYMPTOMS ECG Analysis Resting ECG: Normal sinus rhythm normal axis normal intervals Stress ECG: Patient exercised on Andrews protocol for 9 and half minutes achieving 80% of predicted maximum heart rate without chest pain or diagnostic ST segment depression Arrhythmia: Echo Analysis Resting Echo: Normal left ventricular size wall motion systolic function Peak Echo Analysis: Normal hyperdynamic response at 80% of predicted maximal heart rate MEASUREMENTS (Male/Female) Normal Values CONCLUSIONS Good exercise tolerance Negative stress echo at 80% of predicted maximal heart rate Dr. Vargas Thomas MD (Electronically Signed) Final Date: 05 April 2023 11:09
[2023-04-05] MEDS ORDERED: POTASSIUM CHLORIDE ER 20 MEQ TAB.ER PO STA (13:09)
--- NOTE | 2023-04-05 22:55 | P.DS ---
Providers Date of admission: 04/03/23 20:27 Attending physician: Steven Parker Consults: 04/03/23 20:27 Consult Physician Urgent Consulting Provider: [facility] Consult Reason/Comments: New-onset atrial flutter, chest pain Do you want consulting provider notified?: Yes Primary care physician: Ken Rider Hospital Course: Diagnoses: Paroxysmal atrial fibrillation's with RVR, present on admission. Chest pain, resolved, cardiac causes were ruled out Presyncope most likely secondary to above Hyperlipidemia History of osteoarthritis Chronic back pain Obesity with BMI of 33.1 Hospital course: This is a pleasant 58 years old male with past medical history of Atrial Fibrillation, Hyperlipidemia, Osteoarthritis , chronic BACK PAIN, meinger's disease Patient presents because of A. fib. New onset Patient evaluated by specialist icu and was started on metoprolol 12.5 mg and aspirin for low chads score Patient today was asymptomatic in his lunch and smiling. He denies any chest pain or dyspnea. No other new complaints and is eager to go home today. Patient was cleared for discharge by specialist icu Problems and management plan were discussed with the patient and he verbalized understanding and acceptance Patient was found stable and can be discharged home in guarded prognosis however he needs follow-up as an outpatient. Patient was instructed to follow up with PCP garrick Swift within one week and patient agrees Patient was instructed to follow up with specialist icu Dr. Laughlin in 1 week and he agrees Also patient on high-dose hydrochlorothiazide 50 mg twice a day, he's got some mildly low, prescription for potassium of reported for him with recommendation to follow up with PCP and specialist icu in 1 week and he agrees Physical exam Gen: patient is a AAOx3, no distress CVS: S1-S2, RRR, no murmur Lungs: B/L CTA, no wheezing Abdomen: soft, no distention, no tenderness, positive bowel sounds Extremity: no leg edema or induration Time spent more than 35 minutes Plan - Discharge Summary New Discharge Prescriptions: New Potassium Chloride ER [K-Dur 10] 10 meq PO DAILY 10 Days #10 tab Metoprolol Tartrate [Lopressor] 12.5 mg PO BID #60 tab Aspirin 81 mg PO DAILY #30 tab Continue hydroCHLOROthiazide 50 mg PO BID Metoclopramide [Reglan] 10 mg PO TID PRN #12 tab PRN Reason: Vertigo Glucosam/Pratik-Msm1/C/Zeferino/Bosw [Glucosamine-Chondroitin Tablet] 1 tab PO BID Meclizine [Antivert] 25 mg PO TID PRN PRN Reason: Vertigo Calcium Carb/Mag Ox/Zinc Sulf [Wwl-Gws-Lhvl 334-134-5 mg Tab] 1 tab PO BID [place]-3/Dha/Epa/Fish Oil [Fish Oil 1,000 mg Softgel] 1 cap PO BID Discontinued Naproxen Sodium [Aleve] 220 mg PO QID PRN PRN Reason: pain Discharge Medication List hydroCHLOROthiazide 50 mg PO BID 03/11/21 [History] Metoclopramide [Reglan] 10 mg PO TID PRN #12 tab 03/30/23 [Rx] Calcium Carb/Mag Ox/Zinc Sulf [Ern-Ilw-Qzdd 334-134-5 mg Tab] 1 tab PO BID 04/03/23 [History] Glucosam/Pratik-Msm1/C/Zeferino/Bosw [Glucosamine-Chondroitin Tablet] 1 tab PO BID 04/03/23 [History] Meclizine [Antivert] 25 mg PO TID PRN 04/03/23 [History] [place]-3/Dha/Epa/Fish Oil [Fish Oil 1,000 mg Softgel] 1 cap PO BID 04/03/23 [History] Aspirin 81 mg PO DAILY #30 tab 04/05/23 [Rx] Metoprolol Tartrate [Lopressor] 12.5 mg PO BID #60 tab 04/05/23 [Rx] Potassium Chloride ER [K-Dur 10] 10 meq PO DAILY 10 Days #10 tab 04/05/23 [Rx] Follow up Appointment(s)/Referral(s): Dina Pollard MD [STAFF PHYSICIAN] - 1 Week (Office will call with appointment time and date.) Ken Rider MD [Primary Care Provider] - 1-2 days Activity/Diet/Wound Care/Special Instructions: heart healthy diet activity is restricted till you see your doctor Discharge Disposition: HOME SELF-CARE
== END 2023-04-05 13:52 | disposition home or self-care (01) ==
LOC: EC 17:21 → 3SCARD 20:27 → INTOOBSV 20:27 → 3SCARD 04-04 06:06 → 6NMEDSUR 04-04 13:52
PROVIDERS: ADMIT Hospitalist; ATTEND Hospitalist
DX: I48.0 Paroxysmal atrial fibrillation (principal); R07.9 Chest pain, unspecified; R55 Syncope and collapse; E78.5 Hyperlipidemia, unspecified; M19.90 Unspecified osteoarthritis, unspecified site; G89.29 Other chronic pain; M54.9 Dorsalgia, unspecified; I10 Essential (primary) hypertension; R00.0 Tachycardia, unspecified; I45.10 Unspecified right bundle-branch block; E66.9 Obesity, unspecified; Z68.33 Body mass index [BMI] 33.0-33.9, adult; H81.09 Meniere's disease, unspecified ear; E87.6 Hypokalemia; R00.1 Bradycardia, unspecified; Z79.899 Other long term (current) drug therapy; Z88.7 Allergy status to serum and vaccine; Z88.1 Allergy status to other antibiotic agents; Z91.040 Latex allergy status
CPT/HCPCS: 96366 ×3; 96376; 96365; 99291; 36415; 93005 ×2; 93306; 93351; 80061; 80053; 80048 ×2; 84443; 83735 ×3; 84484 ×2; 85025 ×2; 85610; 85730 ×3; 71046; G0378 ×2; J1644 ×4

== ENCOUNTER → 2023-10-16 | Outpatient (CLI) | payer BC ==
[2023-10-17 03:33] LABS: ALT 31 U/L (10-49); AST 23 U/L (14-35); Albumin 4.6 g/dL (3.8-4.9); Alkaline Phosphatase 79 U/L (41-126); BUN/Creat Ratio 25.25 Ratio (12.00-20.00); Blood Urea Nitrogen 20.2 mg/dL (9.0-27.0); Calcium 10.1 mg/dL (8.7-10.3); Carbon Dioxide 26.6 mmol/L (21.6-31.8); Chloride 99 mmol/L (96-109); Globulin 2.7 g/dL (1.6-3.3); Glucose 96 mg/dL (70-110); Potassium 3.6 mmol/L (3.5-5.5); Sodium 140 mmol/L (135-145); Total Bilirubin 0.5 mg/dL (0.3-1.2); Total Protein 7.3 g/dL (6.2-8.2)
[2023-10-17 04:06] LABS: Prothrombin Time 10.8 sec (9.9-11.9)
[2023-10-17 04:53] LABS: HCT 48.8 % (39.6-50.0); HGB 16.1 g/dL (13.0-17.0); MCH 29.7 pg (27.0-32.0); Mean Platelet Volume 10.4 FL (9.5-12.2); NRBC Per 100 WBC 0 X 10*3/uL (0.00-0.01); Platelet Count 256 X 10*3/uL (140-440); RBC 5.42 X 10*6/uL (4.40-5.60); RDW 13.6 % (11.5-14.5); WBC 8.91 X 10*3/uL (4.50-10.00)
== END | disposition home or self-care (01) ==
LOC: LABWHC1 12:19
PROVIDERS: ATTEND Orthopaedic Surgery
DX: Z01.812 Encounter for preprocedural laboratory examination (principal); M17.11 Unilateral primary osteoarthritis, right knee
CPT/HCPCS: 36415; 80053; 83036; 85027; 85610